=== PATIENT | female | born 1960 | race Caucasian/White ===

== ENCOUNTER 2018-07-06 14:55 | Outpatient (CLI) | payer OTHER ==
--- NOTE | 2018-07-06 17:27 | Ultrasound Report ---
Reason: LOCALIZED SWELLING, MASS AND LUMP, NECK Procedure Date: 07/06/2018 Accession Number: [id number] / [id number] Procedure: US - Head or Neck Soft Tissue CPT Code: FULL RESULT: EXAM: NECK ULTRASOUND EXAM DATE: 07/06/2018 03:25 PM. CLINICAL HISTORY: Left shoulder/neck palpable lump COMPARISON: None. TECHNIQUE: Real-time sonographic imaging was performed by the taker down including color flow. Multiple passenger relations representative static images were saved for review. FINDINGS: Targeted evaluation of the area of concern in the left shoulder/neck reveals an underlying circumscribed oval-shaped hypoechoic area with fine linear striations parallel to the skin line measuring approximately 5.4 x 2.1 x 4.0 cm. No vascularity per taker down; no saved color flow images provided. IMPRESSION: Findings most compatible with superficial lipoma. RADIA
== END 2018-07-06 14:56 | disposition home or self-care (01) ==
LOC: DI 14:55
PROVIDERS: ATTEND Physician Assistant Medical
DX: R22.1 Localized swelling, mass and lump, neck (principal)
CPT/HCPCS: 76536

== ENCOUNTER 2021-06-21 19:08 | Emergency (ER) | payer OTHER ==
[2021-06-21 19:49] LABS: BASOPHILS # (AUTO) 0.1 10^3/uL (0.0-0.1); BASOPHILS % (AUTO) 0.6 %; EOSINOPHILS # (AUTO) 0.2 10^3/uL (0.0-0.7); EOSINOPHILS % (AUTO) 2.2 %; HCT - HEMATOCRIT 43.4 % (37.0-47.0); HGB - HEMOGLOBIN 14.8 g/dL (12.0-16.0); LYMPHOCYTES # (AUTO) 2.6 10^3/uL (1.5-3.5); LYMPHOCYTES % (AUTO) 24.3 %; MEAN CORPUSCULAR HEMOGLOBIN 33.8 pg (27.0-31.0); MEAN CORPUSCULAR HGB CONC 34.1 g/dL (32.0-36.0); MEAN CORPUSCULAR VOLUME 99.1 fL (81.0-99.0); MEAN PLATELET VOLUME 8.6 fL (7.9-10.8); MONOCYTES # (AUTO) 0.8 10^3/uL (0.0-1.0); MONOCYTES % (AUTO) 7.7 %; NEUTROPHILS % (AUTO) 64.8 %; PLT - PLATELET COUNT 380 10^3/uL (130-450); RED BLOOD COUNT 4.38 10^6/uL (4.20-5.40); RED CELL DISTRIBUTION WIDTH 13.4 % (12.0-15.0); WHITE BLOOD COUNT 10.8 x10^3/uL (4.8-10.8)
--- NOTE | 2021-06-21 19:53 | XRAY Report ---
PROCEDURE: Chest 1 View X-Ray INDICATIONS: Chest Pain TECHNIQUE: One view of the chest was acquired. COMPARISON: None FINDINGS: Surgical changes and devices: None. Lungs and pleura: No pleural effusions or pneumothorax. Lungs are clear. Mediastinum: Mediastinal contours appear normal. Heart size is normal. Bones and chest wall: No suspicious bony lesions. Overlying soft tissues appear unremarkable. IMPRESSION: No evidence acute pulmonary process. Reviewed by: Devaughn Fernandes MD on 06/21/2021 7:51 PM PDT Approved by: Devaughn Fernandes MD on 06/21/2021 7:51 PM PDT Station ID: [id number]
[2021-06-21 20:03] LABS: ALBUMIN 4.3 g/dL (3.2-5.5); ALBUMIN/GLOBULIN RATIO 1.5 (1.0-2.2); BILIRUBIN,TOTAL 0.6 mg/dL (0.2-1.0); CALCIUM 9.5 mg/dL (8.5-10.3); POTASSIUM 3.6 mmol/L (3.5-5.0); TOTAL PROTEIN 7.1 g/dL (6.7-8.2)
--- NOTE | 2021-06-21 21:01 | ED Physician Documentation ---
PD HPI CHEST PAIN - Stated complaint Stated Complaint: RIGHT ARM PIT & CHEST PX - Chief complaint Chief Complaint: Cardiac - History obtained from History obtained from: Patient - Additional information Additional information: Pt comes to the ED with chief complaint of R axillary pain radiating to her R anterior chest, worsening for the past few days. Pt states she has a "bad shoulder" on the R, and that she was lowering a tailgate and thinks she strained the area. She states the pain is made worse by movement and deep breaths. She has had a cholecystectomy. No L CP. No cough, fever, or dyspnea. No N/V. Review of Systems Ten Systems: 10 systems reviewed and negative Constitutional: reports: Reviewed and negative Eyes: reports: Reviewed and negative Ears: reports: Reviewed and negative Nose: reports: Reviewed and negative Throat: reports: Reviewed and negative Cardiac: reports: Chest pain / pressure Respiratory: reports: Reviewed and negative GI: reports: Reviewed and negative : reports: Reviewed and negative Skin: reports: Reviewed and negative Musculoskeletal: reports: Reviewed and negative Neurologic: reports: Reviewed and negative Psychiatric: reports: Reviewed and negative Endocrine: reports: Reviewed and negative Immunocompromised: reports: Reviewed and negative PD PAST MEDICAL HISTORY - Past Medical History Past Medical History: Yes Cardiovascular: Hypertension, High cholesterol Respiratory: None Neuro: Migraines Endocrine/Autoimmune: HyPOthyroidism GI: None APPOINTMENT SCHEDULER: None : Incontinence Psych: Depression Musculoskeletal: Fibromyalgia, Fatigue Derm: Psoriasis - Past Surgical History Past Surgical History: Yes General: Cholecystectomy - Present Medications Home Medications: Ambulatory Orders Medication Instructions Recorded Confirmed Aspirin [Aspir 81] 81 mg PO BID 07/26/14 06/21/21 Clobetasol Propionate/Emoll 1 applic TOP DAILY PRN 07/26/14 06/21/21 [Clobetasol Emollnt 0.05% Foam] Fexofenadine [Haily] 180 mg PO QPM 07/26/14 06/21/21 Methotrexate [Methotrexate Sodium] 100 mg PO ONCE 07/26/14 06/21/21 Minocycline [Minocycline HCl] 100 mg PO BID 07/26/14 06/21/21 Telmisartan/Hydrochlorothiazid 1 tab PO QPM 07/26/14 06/21/21 [Micardis Hct 80-12.5 mg Tablet] Tolterodine [Detrol LA] 2 mg PO QPM 07/26/14 06/21/21 Topiramate 50 mg PO BID 07/26/14 06/21/21 Cyclobenzaprine [Flexeril] 10 mg PO HS 06/21/21 06/21/21 Levothyroxine Sodium [Synthroid] 112 mcg ORAL DAILY 06/21/21 06/21/21 Melatonin 5 mg PO HS 06/21/21 06/21/21 - Allergies Allergies/Adverse Reactions: Allergies Allergy/AdvReac Type Severity Reaction Status Date / Time codeine Allergy Unknown Verified 06/21/21 19:18 Mussels Allergy Unknown Uncoded 02/14/16 15:55 - Social History Does the pt smoke?: No Smoking Status: Former smoker Does the pt drink ETOH?: Yes Does the pt have substance abuse?: No - Immunizations Immunizations are current?: Yes PD ED PE NORMAL - Vitals Vital signs reviewed: Yes - General General: Alert and oriented X 3, No acute distress - HEENT HEENT: Atraumatic, PERRL, EOMI, Moist mucous membranes - Neck Neck: Supple, no meningeal sign - Cardiac Cardiac: RRR, No murmur, Strong equal pulses - Respiratory Respiratory: No respiratory distress, Clear bilaterally - Abdomen Abdomen: Soft, Non tender, Non distended - Derm Derm: Normal color, Warm and dry, No rash - Extremities Extremities: No deformity, No edema - Neuro Neuro: Alert and oriented X 3, software implementation project manager 2-12 intact, No motor deficit, No sensory deficit, Normal speech - Psych Psych: Normal mood, Normal affect PD ED PE EXPANDED - Free text exam Free text exam: Anterior and lateral R CW/rib tenderness. No axillary lymphadenopathy or breast mass. Results - Vitals Vitals: Oxygen O2 Source Room air - EKG (time done) 1924 Rate: Rate (enter#) (99) Rhythm: NSR Jadwin: Normal Intervals: Normal IA QRS: Normal Ischemia: Normal ST segments. No: T wave inversion Compare to prior EKG: Old EKG unavailable - Labs Labs: Laboratory Tests 06/21/21 06/21/21 06/21/21 19:44 19:44 19:44 WBC 10.8 RBC 4.38 Hgb 14.8 Hct 43.4 MCV 99.1 H MCH 33.8 H MCHC 34.1 RDW 13.4 Plt Count 380 MPV 8.6 Neut # (Auto) 7.0 H Lymph # (Auto) 2.6 [place] # (Auto) 0.8 Eos # (Auto) 0.2 Baso # (Auto) 0.1 Absolute Nucleated RBC 0.00 Nucleated RBC % 0.0 Sodium 139 Potassium 3.6 Chloride 101 Carbon Dioxide 29 Anion Gap 9.0 BUN 19 Creatinine 1.0 Estimated GFR (MDRD) 56 L Glucose 151 H Calcium 9.5 Total Bilirubin 0.6 AST 23 ALT 32 Alkaline Phosphatase 80 Troponin I High Sens 3.8 Total Protein 7.1 Albumin 4.3 Globulin 2.8 Albumin/Globulin Ratio 1.5 Lipase 39 - Rads (name of study) CXR Radiology: Final report received, EMP read indepedently, See rad report (neg) PD MEDICAL DECISION MAKING - ED course Complexity details: reviewed results, re-evaluated patient, considered differential, d/w patient ED course: Labs, EKG and CXR were all unremarkable. I felt the pt's sx were most consistent with a muscular strain. We have discussed symptomatic management, as well as the usual indications for return. Departure - Departure Disposition: 01 Home, Self Care Clinical Impression: Chest wall pain Chest wall muscle strain Qualifiers: Encounter type: initial encounter Qualified Code(s): S29.011A - Strain of muscle and tendon of front wall of thorax, initial encounter Condition: Stable Instructions: ED Strain Chest Wall Discharge Date/Time: 06/21/21 21:20
[2021-06-21 21:20] VITALS: BP 148/78
== END 2021-06-21 21:20 | disposition home or self-care (01) ==
LOC: ED 19:08
DX: S29.011A Strain of muscle and tendon of front wall of thorax, initial encounter (principal); X58.XXXA Exposure to other specified factors, initial encounter; I10 Essential (primary) hypertension; Z87.891 Personal history of nicotine dependence
CPT/HCPCS: 36415; 80053; 83690; 84484; 85025; 93005; 99284

== ENCOUNTER 2021-09-22 02:46 | Emergency (ER) | payer OTHER ==
[2021-09-22 03:08] LABS: BILIRUBIN,URINE NEGATIVE (NEGATIVE); GLUCOSE, URINE (UA) NEGATIVE (NEGATIVE); KETONES,URINE (UA) TRACE mg/dL (NEGATIVE); OCCULT BLOOD,URINE LARGE (NEGATIVE)
[2021-09-22 03:09] LABS: CLARITY,URINE CLEAR (CLEAR)
[2021-09-22 03:15] LABS: BACTERIA,URINE Few /HPF (None Seen); RBC,URINE TNTC /HPF (0-5); SQUAMOUS EPITHELIAL CELL,UR NONE SEEN (<= Few)
[2021-09-22 03:43] LABS: BASOPHILS % (AUTO) 0.3 %; EOSINOPHILS # (AUTO) 0.2 10^3/uL (0.0-0.7); EOSINOPHILS % (AUTO) 1.5 %; HCT - HEMATOCRIT 42.3 % (37.0-47.0); HGB - HEMOGLOBIN 14.2 g/dL (12.0-16.0); LYMPHOCYTES # (AUTO) 2.4 10^3/uL (1.5-3.5); LYMPHOCYTES % (AUTO) 17.9 %; MEAN CORPUSCULAR HEMOGLOBIN 32.6 pg (27.0-31.0); MEAN CORPUSCULAR HGB CONC 33.6 g/dL (32.0-36.0); MEAN PLATELET VOLUME 8.3 fL (7.9-10.8); MONOCYTES # (AUTO) 0.7 10^3/uL (0.0-1.0); MONOCYTES % (AUTO) 5.4 %; NEUTROPHILS # (AUTO) 9.9 10^3/uL (1.5-6.6); NEUTROPHILS % (AUTO) 74.3 %; PLT - PLATELET COUNT 375 10^3/uL (130-450); RED BLOOD COUNT 4.36 10^6/uL (4.20-5.40); RED CELL DISTRIBUTION WIDTH 13.9 % (12.0-15.0); WHITE BLOOD COUNT 13.3 x10^3/uL (4.8-10.8)
[2021-09-22 03:55] LABS: ALBUMIN 4.5 g/dL (3.2-5.5); ALBUMIN/GLOBULIN RATIO 1.7 (1.0-2.2); BILIRUBIN,TOTAL 0.5 mg/dL (0.2-1.0); CALCIUM 9.3 mg/dL (8.5-10.3); POTASSIUM 3.7 mmol/L (3.5-5.0); TOTAL PROTEIN 7.2 g/dL (6.7-8.2)
--- NOTE | 2021-09-22 04:00 | ED Physician Documentation ---
History of Present Illness - Stated complaint Stated Complaint: BLOOD IN URINE - Chief complaint Chief Complaint: Abd Pain - History obtained from History obtained from: Patient - Additonal information Additional information: 61yF with pmh htn, hld, untreated Lyme disease, psoriasis, RA, fibromyalgia, stress incontinence, p/w blood in her maxi pads since 2129 last night. patient states she often has increased urinary urgency but it got worse last night and she urinated several times, beginning to notice it was pinkish then blood tinged. she is now continuously leaking blood "as if I have my period". endorses suprapubic fullness but denies fever, abdominal pain, or back pain. Review of Systems Ten Systems: 10 systems reviewed and negative Constitutional: denies: Fever, Chills GI: denies: Abdominal Pain, Nausea, Vomiting, Diarrhea : reports: Dysuria, Frequency, Incontinent, Hematuria (hematuria vs vaginal bleeding) PD PAST MEDICAL HISTORY - Past Medical History Past Medical History: Yes Cardiovascular: Hypertension, High cholesterol Respiratory: None Neuro: Migraines Endocrine/Autoimmune: HyPOthyroidism GI: None COLORS CUSTODIAN: None : Incontinence Psych: Depression Musculoskeletal: Fibromyalgia, Fatigue Derm: Psoriasis - Past Surgical History Past Surgical History: Yes General: Cholecystectomy - Present Medications Home Medications: Ambulatory Orders Medication Instructions Recorded Confirmed Aspirin [Aspir 81] 81 mg PO BID 07/26/14 09/22/21 Clobetasol Propionate/Emoll 1 applic TOP DAILY PRN 07/26/14 09/22/21 [Clobetasol Emollnt 0.05% Foam] Fexofenadine [Haily] 180 mg PO QPM 07/26/14 09/22/21 Methotrexate [Methotrexate Sodium] 100 mg PO ONCE 07/26/14 09/22/21 Minocycline [Minocycline HCl] 100 mg PO BID 07/26/14 09/22/21 Telmisartan/Hydrochlorothiazid 1 tab PO QPM 07/26/14 09/22/21 [Micardis Hct 80-12.5 mg Tablet] Tolterodine [Detrol LA] 2 mg PO QPM 07/26/14 09/22/21 Topiramate 50 mg PO BID 07/26/14 09/22/21 Cyclobenzaprine [Flexeril] 10 mg PO HS 06/21/21 09/22/21 Levothyroxine Sodium [Synthroid] 112 mcg ORAL DAILY 06/21/21 09/22/21 Melatonin 5 mg PO HS 06/21/21 09/22/21 Nitrofurantoin [Macrobid] 100 mg PO BID #10 tab 09/22/21 - Allergies Allergies/Adverse Reactions: Allergies Allergy/AdvReac Type Severity Reaction Status Date / Time codeine Allergy Unknown Verified 09/22/21 02:56 Mussels Allergy Unknown Uncoded 09/22/21 02:56 - Social History Does the pt smoke?: No Smoking Status: Never smoker Does the pt drink ETOH?: Yes Does the pt have substance abuse?: No - Immunizations Immunizations are current?: Yes - POLST Patient has POLST: No PD ED PE NORMAL - Vitals Vital signs reviewed: Yes - General General: Alert and oriented X 3, No acute distress, Well developed/nourished - HEENT HEENT: Atraumatic, PERRL, EOMI - Neck Neck: Supple, no meningeal sign - Cardiac Cardiac: RRR - Respiratory Respiratory: No respiratory distress, Clear bilaterally - Abdomen Abdomen: Non tender, Non distended - Back Back: No CVA TTP - Derm Derm: Normal color, Warm and dry - Extremities Extremities: No deformity - Neuro Neuro: Alert and oriented X 3, No motor deficit, No sensory deficit - Psych Psych: Other (anxious affect) Results - Vitals Vitals: Vital Signs - 24 hr 09/22/21 09/22/21 02:50 05:28 Temperature 36.3 C L 36.9 C Heart Rate 97 93 Respiratory 16 16 Rate Blood Pressure 166/76 H 151/87 H O2 Saturation 99 100 Oxygen O2 Source Room air - Labs Labs: Laboratory Tests 09/22/21 09/22/21 09/22/21 03:00 03:36 03:36 WBC 13.3 H RBC 4.36 Hgb 14.2 Hct 42.3 MCV 97.0 MCH 32.6 H MCHC 33.6 RDW 13.9 Plt Count 375 MPV 8.3 Neut # (Auto) 9.9 H Lymph # (Auto) 2.4 [place] # (Auto) 0.7 Eos # (Auto) 0.2 Baso # (Auto) 0.0 Absolute Nucleated RBC 0.00 Nucleated RBC % 0.0 Sodium 134 L Potassium 3.7 Chloride 97 L Carbon Dioxide 25 Anion Gap 12.0 BUN 23 H Creatinine 1.0 Estimated GFR (MDRD) 56 L Glucose 162 H Calcium 9.3 Total Bilirubin 0.5 AST 33 ALT 43 Alkaline Phosphatase 71 Total Protein 7.2 Albumin 4.5 Globulin 2.7 Albumin/Globulin Ratio 1.7 Lipase 68 H Urine Color RED/BLOODY Urine Clarity CLEAR Urine pH 5.0 Ur Specific Clark 1.010 Urine Protein Urine Glucose (UA) NEGATIVE Urine Ketones TRACE Urine Occult Blood LARGE H Urine Nitrite Urine Bilirubin NEGATIVE Urine Urobilinogen Ur Leukocyte Esterase Urine RBC TNTC H Urine WBC 11-25 H Ur Squamous Epith Cells NONE SEEN Urine Bacteria Few Ur Microscopic Review INDICATED Urine Culture Comments INDICATED PD MEDICAL DECISION MAKING - ED course ED course: 61yF p/w increased frequency and hematuria concerning for uti. patient states she gets claustrophobia with ct and is uncomfortable with this, therefore we will obtain u/s to evaluate for uterine pathology rather than ct. higher suspicion that the continuous vaginal bleeding she is experiencing is from urinary bladder 2/2 urinary incontinence therefore if u/s shows no pathology we will treat for uti. initial wet read of ultrasound - no hydro bilaterally. no clear uterine pathology aside from possible polyp. will have patient f/u with uro-cryptologic support specialist outpatient Departure - Departure Disposition: 01 Home, Self Care Clinical Impression: UTI (urinary tract infection), Hematuria, Uterine mass Condition: Good Instructions: ED UTI Cystitis Female Follow-Up: Mya Madera MD [Provider Admit Priv/Credential] - Prescriptions: Nitrofurantoin [Macrobid] 100 mg PO BID #10 tab Comments: You were seen in the emergency department for blood in your urine versus vaginal bleeding. Your urine test showed signs of infection. Your ultrasound showed no kidney issues but did show a possible mass on your uterus. Please take your antibiotics as prescribed. I recommend avoiding activated charcoal intake when taking antibiotics since it can prevent absorption. Please follow up with web mobile designer or uro-gynecology in regards to the mass on your uterus and return to the emergency department if you have new or worsening symptoms or other concerns. Valerie Bowman, [facility], Urology Accepting New Patients [facility] - [address] [address]
[2021-09-22 06:29] VITALS: BP 137/77
--- NOTE | 2021-09-22 12:08 | Ultrasound Report ---
PROCEDURE: Pelvic w/Transvaginal INDICATIONS: vaginal bleeding X 1 day TECHNIQUE: Real-time scanning was performed of the pelvic organs, with image documentation. Additional endovagi nal scanning was necessary due to incomplete visualization of the adnexal and endometrial structures by transabdominal scanning. COMPARISON: None. FINDINGS: No pathologic free abdominal or pelvic fluid. Uterus: Uterus is normal in size at 5.6 x 4.2 x 3.0 cm. The endometrium measures 4.9 mm in combined thickness. Small echogenic foci are noted within the region of the cervix. Echogenic fluid is noted within the e ndometrium. Ovaries: Right ovaries not visualized. Adnexal region is unremarkable. Left ovary is not visualized. Adnexal region is unremarkable. IMPRESSION: 1. Echogenic fluid within the endometrium possibly related to small volume of blood. The above findings are concordant with preliminary report. Reviewed by: Deanna Temple MD on 09/22/2021 12:06 PM PST Approved by: Denana Temple MD on 09/22/2021 12:06 PM PST Station ID: [id number]
--- NOTE | 2021-09-25 08:41 | Ultrasound Report ---
PROCEDURE: Retroperitoneal INDICATIONS: HEMATURIA TECHNIQUE: Real-time scanning was performed of the retroperitoneal organs, with image documentation. COMPARISON: None. FINDINGS: Kidneys: Kidneys are normal in size. Right kidney measures 10.4 cm long; left kidney measures 11.0 cm long. Right renal cortical thickness is 1.3 cm; left renal cortical thickness is 1.2 cm. No sujatha d masses, hydronephrosis, or nephrolithiasis. Bladder: Prevoid volume 20 6 cc, post void residual 206 cc. Ureteral jets are identified bilaterally. The lateral wall appears thickened and is incompletely distended. IMPRESSION: Mild appearance of bladder wall thickening is suspected be related to incomplete distention. However, if clinical concern persists, correlation with urinalysis is recommended, as cystitis can have a sim ilar imaging appearance. Reviewed by: Deanna Temple MD on 09/22/2021 12:08 PM [facility] Approved by: Deanna Temple MD on 09/22/2021 12:08 PM [facility] Station ID: [id number]
== END 2021-09-22 06:29 | disposition home or self-care (01) ==
LOC: ED 02:46
DX: N85.8 Other specified noninflammatory disorders of uterus (principal); N39.0 Urinary tract infection, site not specified; R31.0 Gross hematuria; I10 Essential (primary) hypertension
CPT/HCPCS: 36415; 80053; 81001; 81003; 83690; 85025; 87086; 99284

== ENCOUNTER 2023-03-18 01:22 | Emergency (ER) | payer OTHER ==
[2023-03-18 02:47] LABS: BILIRUBIN,URINE NEGATIVE (NEGATIVE); GLUCOSE, URINE (UA) NEGATIVE (NEGATIVE); KETONES,URINE (UA) NEGATIVE (NEGATIVE); LEUKOCYTE ESTERASE, URINE MODERATE (NEGATIVE); NITRITE,URINE NEGATIVE (NEGATIVE); OCCULT BLOOD,URINE LARGE (NEGATIVE); PROTEIN,URINE TRACE mg/dL (NEGATIVE); UROBILINOGEN,URINE 0.2 (NORMAL) E.U./dL (NORMAL)
[2023-03-18 02:49] LABS: CLARITY,URINE CLEAR (CLEAR)
[2023-03-18 02:55] LABS: BACTERIA,URINE Few /HPF (None Seen); RBC,URINE 0-5 /HPF (0-5); SQUAMOUS EPITHELIAL CELL,UR RARE Squamous (<= Few)
[2023-03-18] MEDS ORDERED: SULFAMETH/TRIMETH DS 800/160 MG TABLET PO STA (03:14)
[2023-03-18] MEDS ORDERED: PHENAZOPYRIDINE 100 MG TABLET PO STA (03:14)
--- NOTE | 2023-03-18 03:17 | ED Physician Documentation ---
History of Present Illness - Stated complaint Stated Complaint: D/FEMALE /SORE THROAT - Chief complaint Chief Complaint: General - History obtained from History obtained from: Patient - Additonal information Additional information: The patient comes to the emergency department chief complaint of pain with urination and passing of blood and clots with urination. She states that this started about 5 days ago after she had a large episode of diarrhea. She states that she has had diarrhea on and off ever since but began to have dysuria and hematuria as well. She is also developed a little bit of a sore throat. She denies any fevers or chills. No nausea or vomiting. No other complaints at this time. PD PAST MEDICAL HISTORY - Past Medical History Cardiovascular: Hypertension, High cholesterol Respiratory: None Neuro: Migraines Endocrine/Autoimmune: HyPOthyroidism GI: None HEEL GOUGER: None : Incontinence Psych: Depression Musculoskeletal: Fibromyalgia, Fatigue Derm: Psoriasis - Past Surgical History Past Surgical History: Yes General: Cholecystectomy - Present Medications Home Medications: Ambulatory Orders Medication Instructions Recorded Confirmed Aspirin [Aspir 81] 81 mg PO BID 07/26/14 09/22/21 Clobetasol Propionate/Emoll 1 applic TOP DAILY PRN 07/26/14 09/22/21 [Clobetasol Emollnt 0.05% Foam] Fexofenadine [Haily] 180 mg PO QPM 07/26/14 09/22/21 Methotrexate [Methotrexate Sodium] 100 mg PO ONCE 07/26/14 09/22/21 Minocycline [Minocycline HCl] 100 mg PO BID 07/26/14 09/22/21 Telmisartan/Hydrochlorothiazid 1 tab PO QPM 07/26/14 09/22/21 [Micardis Hct 80-12.5 mg Tablet] Tolterodine [Detrol LA] 2 mg PO QPM 07/26/14 09/22/21 Topiramate 50 mg PO BID 07/26/14 09/22/21 Cyclobenzaprine [Flexeril] 10 mg PO HS 06/21/21 09/22/21 Levothyroxine Sodium [Synthroid] 112 mcg ORAL DAILY 06/21/21 09/22/21 Melatonin 5 mg PO HS 06/21/21 09/22/21 Nitrofurantoin [Macrobid] 100 mg PO BID #10 tab 09/22/21 Sulfamethox/Trimeth 800/160 1 each PO BID #14 tablet 03/18/23 [Bactrim Ds 800/160] - Allergies Allergies/Adverse Reactions: Allergies Allergy/AdvReac Type Severity Reaction Status Date / Time codeine Allergy Unknown Verified 09/22/21 02:56 Mussels Allergy Unknown Uncoded 09/22/21 02:56 - Social History Does the pt smoke?: No Smoking Status: Never smoker Does the pt drink ETOH?: Yes Does the pt have substance abuse?: No - Immunizations Immunizations are current?: Yes - POLST Patient has POLST: No PD ED PE NORMAL - Vitals Vital signs reviewed: Yes - General General: Alert and oriented X 3, No acute distress, Well developed/nourished - HEENT HEENT: Atraumatic, PERRL, EOMI, Moist mucous membranes, Other (Mild pharyngeal erythema without exudates. The patient's tonsils are extremely small and nearly undetectable.) - Cardiac Cardiac: RRR, No murmur - Respiratory Respiratory: No respiratory distress, Clear bilaterally - Abdomen Abdomen: Soft, Non tender, Non distended - Derm Derm: Normal color, Warm and dry, No rash - Extremities Extremities: No deformity - Neuro Neuro: Alert and oriented X 3 - Psych Psych: Normal mood, Normal affect Results - Vitals Vitals: Vital Signs - 24 hr 03/18/23 03/18/23 01:31 03:18 Temperature 35.7 C L Heart Rate 106 H 73 Respiratory 19 17 Rate Blood Pressure 148/62 H 112/64 O2 Saturation 100 100 Oxygen O2 Source Room air - Labs Labs: Laboratory Tests 03/18/23 02:40 Urine Color YELLOW Urine Clarity CLEAR Urine pH 7.0 Ur Specific [place] <=1.005 Urine Protein TRACE Urine Glucose (UA) NEGATIVE Urine Ketones NEGATIVE Urine Occult Blood LARGE H Urine Nitrite NEGATIVE Urine Bilirubin NEGATIVE Urine Urobilinogen 0.2 (NORMAL) Ur Leukocyte Esterase MODERATE H Urine RBC 0-5 Urine WBC 6-10 H Ur Squamous Epith Cells RARE Squamous Urine Bacteria Few Ur Microscopic Review INDICATED Urine Culture Comments INDICATED PD Medical Decision Making - ED course Complexity details: reviewed results, re-evaluated patient, considered differential, d/w patient ED course: The patient's urinalysis was positive for infection and she was started on Bactrim in the emergency department. We have discussed symptomatic management at home with Pyridium, as well as the usual indications for return. Departure - Departure Disposition: 01 Home, Self Care Clinical Impression: UTI (urinary tract infection) Qualifiers: Urinary tract infection type: site unspecified Hematuria presence: with hematuria Qualified Code(s): N39.0 - Urinary tract infection, site not specified Condition: Stable Instructions: ED UTI Cystitis Female Prescriptions: Sulfamethox/Trimeth 800/160 [Bactrim Ds 800/160] 1 each PO BID #14 tablet Comments: Your urine is positive for infection. You have been started on antibiotics here in the emergency department and a prescription for the same has been sent to the [facility] in [place], your pharmacy of choice on record. Please pick these medications up and take your next dose then. Please be sure to drink plenty of fluids, especially water. As far as your sore throat and diarrhea, it is possible that you also have picked up one of the many viruses that are going around right now. Urinary tract infection can also cause diarrhea as this may be part of the reason your diarrhea has continued. Symptoms are expected to blow over on their own given a week or two.
[2023-03-18 03:19] VITALS: BP 112/64
== END 2023-03-18 03:32 | disposition home or self-care (01) ==
LOC: ED 01:22
DX: N39.0 Urinary tract infection, site not specified (principal); R31.9 Hematuria, unspecified; I10 Essential (primary) hypertension; E78.00 Pure hypercholesterolemia, unspecified; E03.9 Hypothyroidism, unspecified; Z79.82 Long term (current) use of aspirin; Z79.899 Other long term (current) drug therapy
CPT/HCPCS: 81001; 87086; 99283; A9270; 81003

== ENCOUNTER 2023-07-26 17:06 | Emergency (ER) | payer MEDICARE, OTHER ==
[2023-07-26] MEDS ORDERED: IPRATROPIUM/ALBUTEROL 3 ML NEB INH STA (17:27)
[2023-07-26] MEDS ORDERED: diphenhydrAMINE INJ 50 MG/ML VIAL IVP STA (17:28)
[2023-07-26] MEDS ORDERED: PROCHLORPERAZINE 10 MG/2 ML VIAL IVP STA (17:28)
[2023-07-26] MEDS ORDERED: KETOROLAC 30 MG/ML VIAL IVP STA (17:28)
[2023-07-26] MEDS ORDERED: SODIUM CHLORIDE 0.9% 1,000 ML IV STA (17:31)
--- NOTE | 2023-07-26 17:31 | ED Physician Documentation ---
History of Present Illness - Stated complaint Stated Complaint: COUGH/MIGRAINE - Chief complaint Chief Complaint: General - Additonal information Additional information: 62-year-old female presents to the emergency department for evaluation of 1 week fatigue malaise, headache, cough, shortness of air and now diarrhea that began today. She has a history of hypertension, migraines as well as remote history of Lyme disease. She denies any fevers. Has tested negative for COVID. Denies urinary symptoms. Denies chest pain. She has attempted to take her usual migraine cocktails without relief of symptoms. No falls or trauma. Not anticoagulated. Review of Systems Constitutional: reports: Myalgias, Fatigue. 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 : Incontinence Psych: Depression Musculoskeletal: Fibromyalgia, Fatigue Derm: Psoriasis - Past Surgical History Past Surgical History: Yes General: Cholecystectomy - Present Medications Home Medications: Ambulatory Orders Medication Instructions Recorded Confirmed Aspirin [Aspir 81] 81 mg PO BID 07/26/14 09/22/21 Clobetasol Propionate/Emoll 1 applic TOP DAILY PRN 07/26/14 09/22/21 [Clobetasol Emollnt 0.05% Foam] Fexofenadine [Haily] 180 mg PO QPM 07/26/14 09/22/21 Methotrexate [Methotrexate Sodium] 100 mg PO ONCE 07/26/14 09/22/21 Minocycline [Minocycline HCl] 100 mg PO BID 07/26/14 09/22/21 Telmisartan/Hydrochlorothiazid 1 tab PO QPM 07/26/14 09/22/21 [Micardis Hct 80-12.5 mg Tablet] Tolterodine [Detrol LA] 2 mg PO QPM 07/26/14 09/22/21 Topiramate 50 mg PO BID 07/26/14 09/22/21 Cyclobenzaprine [Flexeril] 10 mg PO HS 06/21/21 09/22/21 Levothyroxine Sodium [Synthroid] 112 mcg ORAL DAILY 06/21/21 09/22/21 Melatonin 5 mg PO HS 06/21/21 09/22/21 Nitrofurantoin [Macrobid] 100 mg PO BID #10 tab 09/22/21 Sulfamethox/Trimeth 800/160 1 each PO BID #14 tablet 03/18/23 [Bactrim Ds 800/160] - Allergies Allergies/Adverse Reactions: Allergies Allergy/AdvReac Type Severity Reaction Status Date / Time codeine Allergy Unknown Verified 07/26/23 17:12 mussels Allergy Unknown Verified 07/26/23 17:31 - Social History Does the pt smoke?: No Smoking Status: Never smoker Does the pt drink ETOH?: Yes Does the pt have substance abuse?: No - Immunizations Immunizations are current?: Yes - POLST Patient has POLST: No PD ED PE EXPANDED - General General: Alert, No acute distress, Other (obese) - Cardiac Cardiac: Regular Rate, Radial strong equal, Cap refill < 2 sec. No: Murmur Present - Respiratory Respiratory: Other (generally coarse breath sounds, no crackles). No: Distress, Labored - Abdomen Abdomen: Hyperactive BS. No: Tender to palpation - Derm Derm: Normal color, Warm and dry. No: Rash - Neuro Neuro: Alert and Oriented X 3, CNII-XII intact - GCS Eye Opening: Spontaneous Motor: Obeys Commands Verbal: Oriented Total: 15 Results - Vitals Vitals: Vital Signs - 24 hr 07/26/23 07/26/23 17:12 17:45 Temperature 36.5 C Heart Rate 90 90 Respiratory 16 16 Rate Blood Pressure 150/77 H O2 Saturation 96 Oxygen O2 Source Room air - Labs Labs: Laboratory Tests 07/26/23 07/26/23 07/26/23 17:37 17:40 17:40 WBC 10.8 RBC 4.19 L Hgb 13.5 Hct 40.5 MCV 96.7 MCH 32.2 H MCHC 33.3 RDW 13.9 Plt Count 398 MPV 8.3 Neut # (Auto) 7.6 H Lymph # (Auto) 1.3 L [place] # (Auto) 1.1 H Eos # (Auto) 0.7 Baso # (Auto) 0.1 Absolute Nucleated RBC 0.00 Nucleated RBC % 0.0 Sodium 132 L Potassium 3.4 L Chloride 94 L Carbon Dioxide 28 Anion Gap 10.0 BUN 17 Creatinine 1.1 Estimated GFR (MDRD) 50 L Glucose 113 H Calcium 11.0 H Total Bilirubin 0.4 AST 24 ALT 22 Alkaline Phosphatase 98 B-Natriuretic Peptide Total Protein 7.4 Albumin 4.1 Globulin 3.3 Albumin/Globulin Ratio 1.2 Lipase 30 TSH Free T4 Direct Nasal Adenovirus (PCR) NOT DETECTED Nasal B. parapertussis DNA (PCR) NOT DETECTED Nasal Coronavir 229E PCR NOT DETECTED Nasal Coronavir HKU1 PCR NOT DETECTED Nasal Coronavir NL63 PCR NOT DETECTED Nasal Coronavir OC43 PCR NOT DETECTED Nasal Enterovir/Rhinovir PCR NOT DETECTED Nasal Influenza B PCR NOT DETECTED Nasal Influenza A PCR NOT DETECTED Nasal Parainfluen 1 PCR NOT DETECTED Nasal Parainfluen 2 PCR NOT DETECTED Nasal Parainfluen 3 PCR NOT DETECTED Nasal Parainfluen 4 PCR NOT DETECTED Nasal RSV (PCR) NOT DETECTED Nasal B.pertussis DNA PCR NOT DETECTED Nasal C.pneumoniae (PCR) NOT DETECTED Andrea Human Metapneumo PCR NOT DETECTED Nasal M.pneumoniae (PCR) NOT DETECTED Nasal SARS-CoV-2 (PCR) NOT DETECTED 07/26/23 07/26/23 17:40 17:40 WBC RBC Hgb Hct MCV MCH MCHC RDW Plt Count MPV Neut # (Auto) Lymph # (Auto) [place] # (Auto) Eos # (Auto) Baso # (Auto) Absolute Nucleated RBC Nucleated RBC % Sodium Potassium Chloride Carbon Dioxide Anion Gap BUN Creatinine Estimated GFR (MDRD) Glucose Calcium Total Bilirubin AST ALT Alkaline Phosphatase B-Natriuretic Peptide 64 Total Protein Albumin Globulin Albumin/Globulin Ratio Lipase TSH 7.56 H Free T4 Direct 0.99 Nasal Adenovirus (PCR) Nasal B. parapertussis DNA (PCR) Nasal Coronavir 229E PCR Nasal Coronavir HKU1 PCR Nasal Coronavir NL63 PCR Nasal Coronavir OC43 PCR Nasal Enterovir/Rhinovir PCR Nasal Influenza B PCR Nasal Influenza A PCR Nasal Parainfluen 1 PCR Nasal Parainfluen 2 PCR Nasal Parainfluen 3 PCR Nasal Parainfluen 4 PCR Nasal RSV (PCR) Nasal B.pertussis DNA PCR Nasal C.pneumoniae (PCR) Andrea Human Metapneumo PCR Nasal M.pneumoniae (PCR) Nasal SARS-CoV-2 (PCR) - Rads (name of study) cxr Relevant Findings:: Final report received (no acute cardiopulmonary process) PD Medical Decision Making - ED course Complexity details: reviewed results, re-evaluated patient, d/w patient ED course: 62-year-old female presents emergency department for evaluation of malaise fatigue headaches and cough. This morning she began having diarrhea. Cardiopulmonary auscultation was rather unremarkable. No hypoxia. Chest x-ray is interpreted by the radiologist was negative for acute findings jesting pneumonia pneumothorax or pleural effusion. Respiratory viral panel was also negative. I did obtain CBC and electrolytes. The most acute finding of abnormality was that of a calcium of 11. Her albumin level was normal. She does take calcium supplements as well as being on hydrochlorothiazide. I advised her to discontinue the calcium supplements and follow closely with her PCP. If the calcium remains elevated despite stopping the supplements they may need to consider medication adjustment or PTH monitoring. Clinically she appears rather well though she has vague constitutional symptoms. In the emergency department she was given Compazine Benadryl and Toradol which fully resolved her headache. Despite a negative viral panel I still suspect she has a viral illness. We discussed routine conservative care measures as well as the usual emergent return precautions. Departure - Departure Disposition: Home, Self Care Clinical Impression: Hypercalcemia Fatigue Qualifiers: Fatigue type: unspecified Qualified Code(s): R53.83 - Other fatigue Cough Qualifiers: Cough type: acute Qualified Code(s): R05.1 - Acute cough Headache Qualifiers: Headache type: unspecified Headache chronicity pattern: acute headache Intractability: not intractable Qualified Code(s): R51.9 - Headache, unspecified Condition: Stable Record reviewed to determine appropriate education?: Yes Comments: You are seen today in the emergency department for headache, fatigue, diarrhea and a cough. As discussed at the bedside your chest x-ray was normal. Your labs were all e ssentially normal though your calcium level was a little elevated today at 11. I recommend that you stop your calcium supplements and discuss this with your primary care doctor. Sometimes elevated calcium levels can be seen in those who take hydrochlorothiazide. If stopping the calcium supplements does not normalize her calcium they may want to consider adjusting your medications. Your viral panel today was negative however the constellation of your symptoms speaks mostly to an acute viral illness. At home I recommend that you stay well-hydrated drink plenty of fluids. You can continue to take your usual medications. Return immediately to the ER if you find you are having worsening symptoms, difficulty breathing, chest pain or any other worsening symptoms. Forms: PCP List
--- NOTE | 2023-07-26 17:44 | XRAY Report ---
PROCEDURE: Chest 1 View X-Ray INDICATIONS: Chest Pain TECHNIQUE: One view of the chest was acquired. COMPARISON: 06/21/2021. FINDINGS: Surgical changes and devices: None. Lungs and pleura: No pleural effusions or pneumothorax. Lungs are clear. Mediastinum: Mediastinal contours appear normal. Heart size is normal. Bones and chest wall: No suspicious bony lesions. Overlying soft tissues appear unremarkable. IMPRESSION: No acute cardiopulmonary process. Reviewed by: Dinesh Tim MD on 07/26/2023 5:43 PM PDT Approved by: Dinesh Tim MD on 07/26/2023 5:43 PM PDT Station ID: [id number]
[2023-07-26 17:52] LABS: BASOPHILS # (AUTO) 0.1 10^3/uL (0.0-0.1); BASOPHILS % (AUTO) 0.8 %; EOSINOPHILS # (AUTO) 0.7 10^3/uL (0.0-0.7); EOSINOPHILS % (AUTO) 6.5 %; HCT - HEMATOCRIT 40.5 % (37.0-47.0); HGB - HEMOGLOBIN 13.5 g/dL (12.0-16.0); LYMPHOCYTES # (AUTO) 1.3 10^3/uL (1.5-3.5); LYMPHOCYTES % (AUTO) 11.8 %; MEAN CORPUSCULAR HEMOGLOBIN 32.2 pg (27.0-31.0); MEAN CORPUSCULAR HGB CONC 33.3 g/dL (32.0-36.0); MEAN CORPUSCULAR VOLUME 96.7 fL (81.0-99.0); MEAN PLATELET VOLUME 8.3 fL (7.9-10.8); MONOCYTES # (AUTO) 1.1 10^3/uL (0.0-1.0); NEUTROPHILS # (AUTO) 7.6 10^3/uL (1.5-6.6); NEUTROPHILS % (AUTO) 70.3 %; PLT - PLATELET COUNT 398 10^3/uL (130-450); RED BLOOD COUNT 4.19 10^6/uL (4.20-5.40); RED CELL DISTRIBUTION WIDTH 13.9 % (12.0-15.0); WHITE BLOOD COUNT 10.8 x10^3/uL (4.8-10.8)
[2023-07-26 18:11] LABS: ALBUMIN 4.1 g/dL (3.2-5.5); ALBUMIN/GLOBULIN RATIO 1.2 (1.0-2.2); BILIRUBIN,TOTAL 0.4 mg/dL (0.2-1.0); CREATININE 1.1 mg/dL (0.6-1.3); POTASSIUM 3.4 mmol/L (3.5-4.5); TOTAL PROTEIN 7.4 g/dL (6.4-8.9)
[2023-07-26 18:22] LABS: THYROID STIMULATING HORMONE 7.56 uIU/mL (0.34-5.60)
[2023-07-26 19:04] LABS: B. PARAPERTUSSIS- RESP PCR PAN NOT DETECTED; B. PERTUSSIS- RESP PCR PANEL NOT DETECTED; C. PNEUMONIAE- RESP PCR PANEL NOT DETECTED; CORONAVIRUS 229E-RESP PCR NOT DETECTED; CORONAVIRUS HKU1-RESP PCR NOT DETECTED; CORONAVIRUS NL63-RESP PCR NOT DETECTED; CORONAVIRUS OC43-RESP PCR NOT DETECTED; HUMAN METAPNEUMOVIRUS NOT DETECTED; INFLUENZA A- RESP PCR PANEL NOT DETECTED; INFLUENZA B - RESP PCR PANEL NOT DETECTED; M. PNEUMONIAE- RESP PCR PANEL NOT DETECTED; PARAINFLUENZA VIRUS 1 NOT DETECTED; PARAINFLUENZA VIRUS 2 NOT DETECTED; PARAINFLUENZA VIRUS 3 NOT DETECTED; PARAINFLUENZA VIRUS 4 NOT DETECTED; RHINOVIRUS/ENTEROVIRUS NOT DETECTED; RSV- RESP PCR PANEL NOT DETECTED; SARS-CoV-2 -RESP PCR PANEL NOT DETECTED
[2023-07-26] MEDS ORDERED: POTASSIUM BICARB 25 MEQ TABLET PO STA (19:15)
[2023-07-26 19:45] VITALS: BP 160/95; O2SAT 100
== END 2023-07-26 19:38 | disposition home or self-care (01) ==
LOC: ED 17:06
DX: R53.83 Other fatigue (principal); R05.1 Acute cough; R51.9 Headache, unspecified; E83.52 Hypercalcemia; Z20.822 Contact with and (suspected) exposure to COVID-19
CPT/HCPCS: 36415; 71045; 80053; 83690; 83880; 84439; 84443; 85025; 87633; 94640; 96374; 99283; 99284; A9270; J1200

== ENCOUNTER 2023-08-07 17:25 | Inpatient (IN) | payer MEDICARE, OTHER ==
[2023-08-07] MEDS ORDERED: SODIUM CHLORIDE 0.9% 1,000 ML IV STA ×2 (17:55→19:16)
--- NOTE | 2023-08-07 17:57 | ED Physician Documentation ---
PD HPI HEADACHE - Stated complaint Stated Complaint: GLF/DIZZY/FATIGUE/VOMITING/GI - Chief complaint Chief Complaint: Trauma Hd/Nk - History obtained from History obtained from: Patient - Additional information Additional information: 63-year-old woman with psoriasis on weekly methotrexate, no recent dose changes, type 2 diabetes diagnosis but well controlled with diet, hypertension. She has a history of migraines and lately her migraines have been worse having to take rizatriptan which she had not previously been taking. She developed some weakness and today her legs gave out on her and she hit the back of her head on the bathroom floor. There was no loss of consciousness. She had a severe headache, now mild. 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 Specifically: Her white count was 16.6 thousand, month prior it was 8000. Her platelets were 543, a month prior they were 375. Her liver function was normal. BUN was 29, a month ago was 12. Her creatinine was 2.23, a month ago was 0.9 GFR was 24, a month ago was 71. She has no history of kidney disease. 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 : Incontinence Psych: Depression Musculoskeletal: Fibromyalgia, Fatigue Derm: Psoriasis - Past Surgical History Past Surgical History: Yes General: Cholecystectomy - Present Medications Home Medications: Ambulatory Orders Medication Instructions Recorded Confirmed Aspirin [Aspir 81] 81 mg PO BID 07/26/14 09/22/21 Clobetasol Propionate/Emoll 1 applic TOP DAILY PRN 07/26/14 09/22/21 [Clobetasol Emollnt 0.05% Foam] Fexofenadine [Haily] 180 mg PO QPM 07/26/14 09/22/21 Methotrexate [Methotrexate Sodium] 100 mg PO ONCE 07/26/14 09/22/21 Minocycline [Minocycline HCl] 100 mg PO BID 07/26/14 09/22/21 Telmisartan/Hydrochlorothiazid 1 tab PO QPM 07/26/14 09/22/21 [Micardis Hct 80-12.5 mg Tablet] Tolterodine [Detrol LA] 2 mg PO QPM 07/26/14 09/22/21 Topiramate 50 mg PO BID 07/26/14 09/22/21 Cyclobenzaprine [Flexeril] 10 mg PO HS 06/21/21 09/22/21 Levothyroxine Sodium [Synthroid] 112 mcg ORAL DAILY 06/21/21 09/22/21 Melatonin 5 mg PO HS 06/21/21 09/22/21 Nitrofurantoin [Macrobid] 100 mg PO BID #10 tab 09/22/21 Sulfamethox/Trimeth 800/160 1 each PO BID #14 tablet 03/18/23 [Bactrim Ds 800/160] - Allergies Allergies/Adverse Reactions: Allergies Allergy/AdvReac Type Severity Reaction Status Date / Time codeine Allergy Unknown Verified 07/26/23 17:12 mussels Allergy Unknown Verified 07/26/23 17:31 - Social History Does the pt smoke?: No Smoking Status: Never smoker Does the pt drink ETOH?: Yes Does the pt have substance abuse?: No - Immunizations Immunizations are current?: Yes - POLST Patient has POLST: No PD ED PE NORMAL - Vitals Vital signs reviewed: Yes - General General: Alert and oriented X 3, No acute distress - Neck Neck: Supple, no meningeal sign - Cardiac Cardiac: RRR, No murmur - Respiratory Respiratory: No respiratory distress, Clear bilaterally - Abdomen Abdomen: Non tender - Back Back: No CVA TTP, No spinal TTP - Derm Derm: Normal color, Warm and dry - Extremities Extremities: No edema, No calf tenderness / cord - Neuro Neuro: Alert and oriented X 3, Normal speech Results - Vitals Vitals: Vital Signs - 24 hr 08/07/23 17:31 Temperature 36.3 C L Heart Rate 69 Respiratory 18 Rate Blood Pressure 150/76 H O2 Saturation 98 Oxygen O2 Source Room air - EKG (time done) 1826 EKG releavant findings:: EKG personally interpreted by author of this note. Relevant findings are: Rate: Rate (enter#) (65) Rhythm: NSR [place]: Normal Intervals: Normal [place], Prolonged QT QRS: Normal Ischemia: Normal ST segments - Labs Labs: Laboratory Tests 08/07/23 08/07/23 08/07/23 18:14 18:44 18:44 WBC 15.4 H RBC 4.47 Hgb 14.5 Hct 41.5 MCV 92.8 MCH 32.4 H MCHC 34.9 RDW 13.3 Plt Count 508 H MPV 8.6 Neut # (Auto) Not Reportable Lymph # (Auto) Not Reportable [place] # (Auto) Not Reportable Eos # (Auto) Not Reportable Baso # (Auto) Not Reportable Absolute Nucleated RBC Not Reportable Total Counted 100 Band Neuts % (Manual) 0 Abnorm Lymph % (Manual) 0 Nucleated RBC % Not Reportable Neutrophils # (Manual) 10.3 H Lymphocytes # (Manual) 2.8 Monocytes # (Manual) 2.3 H Eosinophils # (Manual) 0.0 Basophils # (Manual) 0.0 Differential Comment MANUAL DIFFERENTIAL Platelet Estimate INCREASED (>450,000) Platelet Morphology NORMAL APPEARANCE RBC Morph Micro Appear NORMAL APPEARANCE Sodium 126 L Potassium 3.2 L Chloride 89 L Carbon Dioxide 29 Anion Gap 8.0 BUN 40 H Creatinine 2.6 H Estimated GFR (MDRD) 18 L Glucose 115 H Calcium 16.2 H* Total Bilirubin 0.5 AST 25 ALT 25 Alkaline Phosphatase 79 Total Protein 7.1 Albumin 3.9 Globulin 3.2 Albumin/Globulin Ratio 1.2 Total Intact PTH 6 L - Rads (name of study) CT Head Relevant Findings:: Final report received, EMP independent interpretation of test PD Medical Decision Making - ED course ED course: 63-year-old woman with nonspecific syndrome of fatigue, vomiting, GI upset and weakness today coming in a fall and hitting her head. CT of the head was without signs of trauma or other abnormality. Labs were notable for worsening renal function on CMP with modest hyponatremia and hypokalemia and profound hype rcalcemia. CBC showing improved white count from yesterday. She was hydrated with 1 L of normal saline and 300 mL/h for her hypercalcemia. Renal function would not currently tolerate zoledronic acid. PTH added on and low so this is suggestive of either elevated vitamin D or malignancy related hypercalcemia. Vitamin D levels and PTH RP were added on but will not be completed tonight. Retroperitoneal ultrasound also ordered but given the above I expect her kidneys to be probably structurally normal. Spoke with Dr. Chapa, [facility] hospitalist for admission at 8:35 PM. Departure - Departure Disposition: 64 [facility] DC/Xfer Clinical Impression: FANY (acute kidney injury), Hypercalcemia, Hypokalemia, Hyponatremia Head injury Qualifiers: Encounter type: initial encounter Qualified Code(s): S09.90XA - Unspecified injury of head, initial encounter Condition: Serious Forms: PCP List
[2023-08-07 18:32] LABS: BASOPHILS % (AUTO) 0.4 %; EOSINOPHILS % (AUTO) 0.4 %; HCT - HEMATOCRIT 41.5 % (37.0-47.0); HGB - HEMOGLOBIN 14.5 g/dL (12.0-16.0); LYMPHOCYTES % (AUTO) 13.6 %; MEAN CORPUSCULAR HEMOGLOBIN 32.4 pg (27.0-31.0); MEAN CORPUSCULAR HGB CONC 34.9 g/dL (32.0-36.0); MEAN CORPUSCULAR VOLUME 92.8 fL (81.0-99.0); MEAN PLATELET VOLUME 8.6 fL (7.9-10.8); MONOCYTES % (AUTO) 10.3 %; NEUTROPHILS % (AUTO) 74.7 %; PLT - PLATELET COUNT 508 10^3/uL (130-450); RED BLOOD COUNT 4.47 10^6/uL (4.20-5.40); RED CELL DISTRIBUTION WIDTH 13.3 % (12.0-15.0); WHITE BLOOD COUNT 15.4 x10^3/uL (4.8-10.8)
[2023-08-07 18:34] LABS: ABNORMAL LYMPHS % (MANUAL) 0 %; BAND NEUTROPHILS % (MANUAL) 0 %
[2023-08-07 19:02] LABS: LYMPHOCYTES # (MANUAL) 2.8 10^3/uL (1.5-3.5); LYMPHOCYTES % (MANUAL) 18 %; MONOCYTES # (MANUAL) 2.3 10^3/uL (0.0-1.0); NEUTROPHILS # (MANUAL) 10.3 10^3/uL (1.5-6.6); PLATELET ESTIMATE, MANUAL INCREASED (>450,000) (NORMAL); PLATELET MORPHOLOGY NORMAL APPEARANCE (NORMAL); RBC MORPHOLOGY (MULTIPLE) NORMAL APPEARANCE (NORMAL)
[2023-08-07 19:03] LABS: DIFFERENTIAL COMMENT MANUAL DIFFERENTIAL
[2023-08-07 19:03] LABS: ALBUMIN 3.9 g/dL (3.2-5.5)
[2023-08-07 19:08] LABS: CALCIUM 16.2 mg/dL (8.5-10.3)
[2023-08-07 19:11] LABS: ALBUMIN/GLOBULIN RATIO 1.2 (1.0-2.2); BILIRUBIN,TOTAL 0.5 mg/dL (0.2-1.0); CREATININE 2.6 mg/dL (0.6-1.3); POTASSIUM 3.2 mmol/L (3.5-4.5); TOTAL PROTEIN 7.1 g/dL (6.4-8.9)
[2023-08-07] MEDS ORDERED: POTASSIUM CHLOR 10 MEQ/100 ML 10 MEQ/100 ML BAG IV STA (19:19)
--- NOTE | 2023-08-07 20:01 | CT Report ---
PROCEDURE: HEAD WO INDICATIONS: head inj TECHNIQUE: Noncontrast 4.5 mm thick angled axial sections acquired from the foramen magnum to the vertex. For r adiation dose reduction, the following was used: automated exposure control, adjustment of mA and/or kV according to patient size. COMPARISON: None. FINDINGS: Image quality: Excellent. CSF spaces: Basal cisterns are patent. No extra-axial fluid collections. Ventricles are normal in size and shape. Brain: No midline shift. No intracranial masses or hemorrhage. [place]-white matter interface is with in normal limits. Skull and face: Calvarium and visualized facial bones are intact, without suspicious lesions. Sinuses: Visualized sinuses and mastoids are clear. IMPRESSION: No acute intracranial pathology. Reviewed by: Josr Cohn MD on 08/07/2023 8:00 PM PDT Approved by: Josr Cohn MD on 08/07/2023 8:00 PM PDT Station ID: [id number]
--- NOTE | 2023-08-07 20:41 | XRAY Report ---
PROCEDURE: Chest 1 View X-Ray INDICATIONS: hypercalcemia TECHNIQUE: One view of the chest was acquired. COMPARISON: CXR 07/26/2023. FINDINGS: Surgical changes and devices: None. Lungs and pleura: No pleural effusions or pneumothorax. Lungs are clear. Mediastinum: Mediastinal contours appear normal. Heart size is normal. Bones and chest wall: No suspicious bony lesions. Overlying soft tissues appear unremarkable. IMPRESSION: No acute cardiopulmonary process. Reviewed by: Josr Cohn MD on 08/07/2023 8:40 PM PDT Approved by: Josr Cohn MD on 08/07/2023 8:40 PM PDT Station ID: [id number]
--- NOTE | 2023-08-07 20:57 | HISTORY & PHYSICAL EXAMINATION ---
Chief Complaint - Chief Complaint Chief Complaint: weakness History of Present Illness - Admitted From Admitted From:: home - History Obtained From Exam Limitations: telemedicine - History of Present Illness HPI Comment/Other: Ms Nicolas is a 63 yo F with hx psoriasis (on methotrexate weekly), DM II diet controlled, HTN, migraine headaches. Presents to ER with c/o weakness, ground level fall. Pt felt weak, legs gave out and she hit the back of her head on the floor, denies LOC. Pt has been feeling nauseous and vomited this week. Her gait has been progressively unstable over the past month, has a hard time getting up stairs now requires assistance from her . She feels sore/achy in her legs. Denies hematuria, dysuria or any changes in urination patterns/habits. Denies diarrhea or constipation. Denies blood in stool. Labs done at dermatology office yesterday: WBC 16.6, plt 543, LFTs wnl, BUN 29, Cr 2.23 (last month Cr 0.9). No prior history of kidney disease. 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 brother had tongue cancer. grandmother lung cancer. - Substance History Use: Uses substance without health or social issues: Tobacco (quit 50 years ago ) - POLST Patient has POLST: No Meds/Allgy - Home Medications Home Medications: Ambulatory Orders Medication Instructions Recorded Confirmed Aspirin [Aspir 81] 81 mg PO BID 07/26/14 09/22/21 Clobetasol Propionate/Emoll 1 applic TOP DAILY PRN 07/26/14 09/22/21 [Clobetasol Emollnt 0.05% Foam] Fexofenadine [Haily] 180 mg PO QPM 07/26/14 09/22/21 Methotrexate [Methotrexate Sodium] 100 mg PO ONCE 07/26/14 09/22/21 Minocycline [Minocycline HCl] 100 mg PO BID 07/26/14 09/22/21 Telmisartan/Hydrochlorothiazid 1 tab PO QPM 07/26/14 09/22/21 [Micardis Hct 80-12.5 mg Tablet] Tolterodine [Detrol LA] 2 mg PO QPM 07/26/14 09/22/21 Topiramate 50 mg PO BID 07/26/14 09/22/21 Cyclobenzaprine [Flexeril] 10 mg PO HS 06/21/21 09/22/21 Levothyroxine Sodium [Synthroid] 112 mcg ORAL DAILY 06/21/21 09/22/21 Melatonin 5 mg PO HS 06/21/21 09/22/21 Nitrofurantoin [Macrobid] 100 mg PO BID #10 tab 09/22/21 Sulfamethox/Trimeth 800/160 1 each PO BID #14 tablet 03/18/23 [Bactrim Ds 800/160] - Allergies Allergies/Adverse Reactions: Allergies Allergy/AdvReac Type Severity Reaction Status Date / Time codeine Allergy Unknown Verified 07/26/23 17:12 mussels Allergy Unknown Verified 07/26/23 17:31 Review of Systems - Constitutional Constitutional: reports: Fatigue, Weakness, Poor appetite, Weight loss (7-8 lbs in the last month). denies: Diaphoresis, Night sweats - Eyes Eyes: denies: Blurred vision, Vision loss, Dipolpia - Ears, Nose & Throat Ears, Nose & Throat: denies: Hearing loss - Cardiovascular Cariovascular: reports: Chest pain (couple of weeks ago, resolved. today achy pain/muscle ache, resolved after an hour without intervention). denies: Palpitations - Respiratory Respiratory: denies: Cough, Sputum production, Wheezing - Gastrointestinal Gastrointestinal: reports: Nausea, Vomiting. denies: Constipation, Diarrhea - Genitourinary Genitourinary: denies: Dysuria, Frequency, Hematuria - Musculoskeletal Musculoskeletal: reports: Muscle aches (legs) - Integumentary Integumentary: denies: Rash, Pruritis - Neurological Neurological: reports: General weakness, Dizziness. denies: Focal weakness, Headache - Endocrine Endocrine: denies: Polyuria, Polydypsia - Hematologic/Lymphatic Hematologic/Lymphatic: denies: Bruising Prior Level of Functionality: ambulates independently - progressively weak over the past month Exam - Vital Signs Reviewed Vital Signs: Yes Vital Signs: Vital Signs x48h Temp Pulse Resp BP Pulse Ox 08/07/23 17:31 36.3 C L 69 18 150/76 H 98 - Physical Exam General Appearance: positive: No acute distress, Alert Eyes Bilateral: positive: Normal inspection ENT: positive: ENT inspection nml Neck: positive: Nml inspection Respiratory: positive: No respiratory distress Skin: positive: Color nml, No rash Neurologic/Psychiatric: positive: Oriented x3, Mood/affect nml Comments/Other: limited exam, telemedicine Conclusion/Plan - Lab Results Lab results reviewed: Yes Fish Bones: 08/07/23 18:14 08/07/23 18:44 - Diagnostic Imaging Results Diagnostic Imaging Results: positive: Final report reviewed (CXR / CT head) - Other Other Results/Comments: Hypercalcemia and FANY -Etiology unclear, work up in process -Continue aggressive IV fluid resuscitation -Zoledronic acid contraindicated for FANY/CrCl <35 - hold -Subcutaneous calcitonin - not on formulary -F/u Vit D level, PTHrp -CXR/CT head unremarkable - consider further imaging ideally with contrast if creatinine improves -F/u UA -F/u renal US Leukocytosis/thrombocytosis -?Reactive -Currently afebrile -Monitor closely and trend labs DM II -SSI -Diet controlled HTN -BP stable, monitor Psoriasis -Weekly methotrexate DVT ppx: Heparin sc Full code Core Measures - DVT/VTE - Prophylaxis VTE/DVT Device ordered at admit?: Yes Telemedicine Consult Details - Provider Location & Consult Time Telemedicine consultation conducted via videoconferencing?: Yes List names and roles of persons who participated in consult:: Dr Chapa, patient and her Telemedicine provider location:: [place]
--- NOTE | 2023-08-07 21:01 | Ultrasound Report ---
PROCEDURE: Retroperitoneal INDICATIONS: Acute renal failure TECHNIQUE: Real-time scanning was performed of the retroperitoneal organs, with image documentation. COMPARISON: 09/22/2021 FINDINGS: Kidneys: . Right kidney measures 10.8 cm long; left kidney measures 11.1 cm long. Right renal anish ical thickness is 1.6 cm; left renal cortical thickness is 1.1 cm. No hydronephrosis or nephrolithia sis. Bladder: Pre-void bladder volume is 167 mL. Patient could not void for postvoid imaging. Pre-void i mages demonstrate no intraluminal masses or stones. On pre-void images, both ureteral jets are noted with color Doppler interrogation. (Of note, ureteral jets may not be detectable in up to 25% of marshal es due to insufficient differences in specific gravity between ureteral and bladder urine). Miscellaneous: No free abdominal fluid. IMPRESSION: No hydronephrosis or evidence of nephrolithiasis. Reviewed by: Donny Galvez MD on 08/07/2023 9:00 PM PDT Approved by: Donny Galvez MD on 08/07/2023 9:00 PM PDT Station ID: [id number]
[2023-08-07] MEDS ORDERED: ONDANSETRON 4 MG/2 ML VIAL IVP PRN (21:33)
[2023-08-07 23:09] LABS: BILIRUBIN,URINE NEGATIVE (NEGATIVE); GLUCOSE, URINE (UA) NEGATIVE (NEGATIVE); KETONES,URINE (UA) NEGATIVE (NEGATIVE); LEUKOCYTE ESTERASE, URINE TRACE (NEGATIVE); NITRITE,URINE NEGATIVE (NEGATIVE); OCCULT BLOOD,URINE NEGATIVE (NEGATIVE); PH,URINE 5.5 PH (5.0-7.5); PROTEIN,URINE NEGATIVE (NEGATIVE); UROBILINOGEN,URINE 0.2 (NORMAL) E.U./dL (NORMAL)
[2023-08-07 23:15] LABS: CLARITY,URINE CLEAR (CLEAR)
[2023-08-07 23:24] LABS: BACTERIA,URINE Few /HPF (None Seen); CASTS, URINE 3-5 Hyaline Casts /LPF; RBC,URINE 0-5 /HPF (0-5); SQUAMOUS EPITHELIAL CELL,UR MOD Squamous (<= Few)
[2023-08-07] MEDS: SODIUM CHLORIDE 0.9% 1,000 ML IV SCH (23:50)
[2023-08-07] MEDS: SODIUM CHLORIDE FLUSH 0.9% 10 ML SYRINGE IVP SCH (23:50)
[2023-08-08] MEDS: ACETAMINOPHEN 325 MG TABLET PO PRN (00:43)
[2023-08-08 06:16] LABS: BASOPHILS # (AUTO) 0.1 10^3/uL (0.0-0.1); BASOPHILS % (AUTO) 0.6 %; EOSINOPHILS # (AUTO) 0.1 10^3/uL (0.0-0.7); EOSINOPHILS % (AUTO) 0.8 %; HCT - HEMATOCRIT 36.1 % (37.0-47.0); HGB - HEMOGLOBIN 12.4 g/dL (12.0-16.0); LYMPHOCYTES # (AUTO) 2.2 10^3/uL (1.5-3.5); LYMPHOCYTES % (AUTO) 15.8 %; MEAN CORPUSCULAR HEMOGLOBIN 32.6 pg (27.0-31.0); MEAN CORPUSCULAR HGB CONC 34.3 g/dL (32.0-36.0); MEAN PLATELET VOLUME 8.8 fL (7.9-10.8); MONOCYTES # (AUTO) 1.4 10^3/uL (0.0-1.0); NEUTROPHILS # (AUTO) 10.2 10^3/uL (1.5-6.6); NEUTROPHILS % (AUTO) 72.3 %; PLT - PLATELET COUNT 429 10^3/uL (130-450); RED CELL DISTRIBUTION WIDTH 13.7 % (12.0-15.0); WHITE BLOOD COUNT 14.1 x10^3/uL (4.8-10.8)
[2023-08-08 06:30] LABS: ALBUMIN 3.4 g/dL (3.2-5.5); MAGNESIUM 2.5 mg/dL (1.7-2.3); PHOSPHORUS 3.3 mg/dL (2.5-5.0)
[2023-08-08 06:38] LABS: CALCIUM 13.7 mg/dL (8.5-10.3)
[2023-08-08 06:39] LABS: ALBUMIN/GLOBULIN RATIO 1.3 (1.0-2.2); BILIRUBIN,TOTAL 0.4 mg/dL (0.2-1.0); CALCIUM, IONIZED 1.82 mmol/L (1.15-1.33); CREATININE 2.3 mg/dL (0.6-1.3); VBG PH 7.401 (7.31-7.41)
[2023-08-08] MEDS: SODIUM CHLORIDE 0.9% 1,000 ML IV SCH ×4 (07:05→22:07)
[2023-08-08] MEDS: SODIUM CHLORIDE FLUSH 0.9% 10 ML SYRINGE IVP SCH ×2 (07:05→17:32)
[2023-08-08 07:09] LABS: THYROID STIMULATING HORMONE 5.92 uIU/mL (0.34-5.60)
[2023-08-08] MEDS: INSULIN LISPRO 300 UNIT/3 ML PEN SUBQ SCH ×4 (08:25→20:42)
[2023-08-08] MEDS: HEPARIN 5,000 UNIT/ML VIAL SUBQ SCH ×2 (10:48→20:42)
--- NOTE | 2023-08-08 11:43 | PHARMACY PROGRESS NOTE ---
- Best Possible Medication History Admit Date and Time: 08/07/232132 Processed by: Pharmacy Medication History completed: Yes Patient Interview: Completed Secondary Source(s): Insurance records (COMPTETED BY ZAKIYA DRAKE TECH. PER NOELLE, PT HAS BEEN OUT OF LEVOTHYROXINE X 1 MONTH DUE TO NO PCP. PT TURNED AWAY FROM [facility]ASE ONCE SHE TURNED 63. FOUND NEW PCP RECENTLY, JOAN CASAS IN [place].) As the person ultimately responsible for medication therapy, providers are able to order a medication from an existing home medication list in [facility] via the "Reconcile Routine" prior to Confirmation of that medication by collection support specialist. Such practice is discouraged except when the physician, in their clinical judgment, deems that a medical need exists for a medication without regard to previous use.
[2023-08-08 12:09] LABS: ESTIMATED AVERAGE GLUCOSE 134 mg/dL (70-100); HEMOGLOBIN A1c% 6.3 % (4.27-6.07)
[2023-08-08] MEDS ORDERED: SODIUM CHLORIDE 0.9% 1,000 ML IV SCH (15:19)
[2023-08-08 16:27] LABS: CALCIUM 12.5 mg/dL (8.5-10.3)
--- NOTE | 2023-08-08 19:50 | PROVIDER PROGRESS NOTE ---
Assessment/Plan - Problem List (1) FANY (acute kidney injury) Assessment/Plan: Etiology is poss from dehydration, given the Hx of poor appetite and HydroDIURIL use Plan: Avoid nephrotoxins Continue with IV hydration but will slow down the rate fro 250 cc/hr to 83.33 cc/hr Obtain renal ultrasound for more definitive kidney evaluation (2) Hypercalcemia PTH level came back low, indicating her elev Ca++ is not from high PTH. Her U/A showed no protein, in consideration of mult myeloma. CXR showed no tumor to syggest lung CA. Etiology unclear, work up in process All labs were reviewed: Ca 13.7>> 12.4 after 10 hours of aggressive iv hydration w/ saline Plan: Continue IV fluid resuscitation Zoledronic acid contraindicated for FANY/CrCl <35 - was not ordered Subcutaneous calcitonin - not on formulary - was not ordered Awaiting Vit D level CXR/CT head unremarkable - consider further imaging ideally with contrast, if creatinine improves Await renal US (3) Hyponatremia She appears to have hypovolemic hyponatremia consistent with volume depletion. This is not pseudohyponatremia due to excessively high glu She is today 4 L positive after getting NS IV fluids We are following her serum sodium several times per day All labs were reviewed: Na 126 >> 132 after 24 hours of aggressive iv hydration w/ saline Plan: I will decrease the NS rate from 250 cc/hr to prevent poss pulm edema Follow serum sodium every 8-12 hours Plan is to avoid sodium correction that is excessively fast to prevent [employer] damage, goal Na increase 6-8 mEq per 24 hr (4) Leukocytosis/thrombocytosis Possibly Reactive She is still currently afebrile Plan: Monitor closely and trend labs (5) Borderline DM II She used to be on Metformin. Then she lost 30-40 lbs and no longer takes DM meds, just a DM diet Her A1c came back at 6.3 Plan: SSInsulin coverage for fingerstick results, hypoglycemia protocol DM diet to continue (6) Hx of HTN BP stable and she has not been started on her home meds (7) Psoriasis She was on weekly methotrexate for alopecia, had possible Fibromyalgia and probbale psoriasis Plan: No MTX while here (8) Fall at home Plan: Will order PT and OT evaluations Will get orthostatic vital sign checks Continue with hydration Hold her home dose of HydroDIURIL (9) Generalized weakness The patient and her requested that I speak to the patient's [id number] who is an Ophthalmology doctor in [place]. I spoke to Dr. Jacqueline Nicolas today, who gave me more details about the patient's history (which is included above) I learned that the patient started to get weakness about 3 weeks ago. She did not want to seek medical care because she did not want to "be a burden". Approximately 3 days ago she rapidly declined and was too weak to get out of bed, fell at home, appetite was poor, she was more drowsy. Dr Nicolas did not know that te pt had stopped taking her Synthroid 1 month ago (as per reconciled med list). Also, Dr Nicolas was not aware of all the meds she was on. Plan: Work-up as above in #8 and 1 - 4 - Current Meds Current Meds: Current Medications Generic Name Dose Route Start Last Admin Trade Name Freq PRN Reason Stop Dose Admin Acetaminophen 650 mg 08/07/23 21:33 08/08/23 00:43 Acetaminophen 325 Mg Tablet PO 650 mg Q4HR PRN Administration Pain 1 to 4, or Fever Heparin Sodium (Porcine) 5,000 unit 08/08/23 09:00 08/08/23 10:48 Heparin 5,000 Unit/Ml Vial SUBQ 5,000 unit BID BRAN Administration Insulin Human Lispro 1 - 5 unit 08/08/23 08:00 08/08/23 17:31 Insulin Lispro 300 Unit/3 Ml Pen SUBQ Not Given 0800,1200,1700,2100 COUNT INCLUDES THE [facility] Protocol Sodium Chloride 10 ml 08/08/23 01:00 08/08/23 17:32 Sodium Chloride Flush 0.9% 10 Ml Syringe IVP Not Given 0100,0900,1700 COUNT INCLUDES THE [facility] - Lab Result Fish Bone Diagrams: 08/08/23 05:15 08/08/23 15:46 - Additional Planning My Orders: My Active Orders 08/08/23 Evaluate and Treat OT [OT] Routine Evaluate and Treat PT [PT] Routine 08/08/23 12:46 Telemetry- [RC] Q4HR 08/08/23 19:37 Sodium Chloride 0.9% [Normal Saline 0.9%] 1,000 ml IV 83.33 mls/hr 08/08/23 19:38 Orthostatic [Vital Signs - Orthostatic] [RC] QSHIFT Vital Signs- Do Not Awaken For [RC] HS 08/08/23 19:39 Retroperitoneal Limited [US] Routine 08/09/23 05:00 BMP - BASIC METABOLIC PANEL [CHEM] DAILYLAB CALCIUM [CHEM] DAILYLAB CBC - COMP BLD CT W/AUTO DIFF [HEME] DAILYLAB MAGNESIUM [CHEM] DAILYLAB 08/09/23 07:00 Levothyroxine [Synthroid] 112 mcg PO AC 08/10/23 05:00 BMP - BASIC METABOLIC PANEL [CHEM] DAILYLAB CALCIUM [CHEM] DAILYLAB 08/11/23 05:00 BMP - BASIC METABOLIC PANEL [CHEM] DAILYLAB CALCIUM [CHEM] DAILYLAB Subjective - Subjective Patient Reports: Other (She feels minimally better, still very fatigued. Denies pain except R kneecap. No N/V, but has no appetite.) Objective Vital Signs: Vital Signs - 24 hr 08/07/23 08/07/23 08/08/23 21:01 22:33 00:53 Temperature 36.0 C L 36.3 C L Heart Rate 67 Heart Rate [ 82 68 Brachial] Heart Rate [ Supine] Respiratory 18 16 18 Rate Blood Pressure 137/83 H Blood Pressure 142/99 H 137/69 H [Left Brachial artery] Blood Pressure [Standing] Blood Pressure [Supine] O2 Saturation 98 99 100 08/08/23 08/08/23 08/08/23 08:00 11:05 12:41 Temperature 36.4 C L 36.6 C Heart Rate Heart Rate [ 66 71 Brachial] Heart Rate [ 72 Supine] Respiratory 18 20 Rate Blood Pressure Blood Pressure 145/59 H 146/55 H [Left Brachial artery] Blood Pressure 152/95 H [Standing] Blood Pressure 135/68 H [Supine] O2 Saturation 98 100 08/08/23 15:12 Temperature 36.5 C Heart Rate Heart Rate [ 69 Brachial] Heart Rate [ Supine] Respiratory 18 Rate Blood Pressure Blood Pressure 144/61 H [Left Brachial artery] Blood Pressure [Standing] Blood Pressure [Supine] O2 Saturation 98 Oxygen O2 Source Room air I&O (Last 24 Hrs): Intake and Output Totals x24h 08/06/23 08/07/23 08/08/23 23:59 23:59 23:59 Intake Total 1100 4299.167 Output Total 1400 Balance 1100 2899.167 General: Alert, Oriented x3 HEENT: Other (Dry mucosa, appears fatigued. Has marked alopcia w/ receding hairline) Neck: Supple, No JVD Neuro: Alert, Non Focal, Other (Appears weak and tired.) Cardiovascular: Regular rate, No murmurs Respiratory: No respiratory distress, Breath sounds nml Abdomen: Normal bowel sounds, Soft, No tenderness Extremities: No clubbing, No edema, No tenderness/swelling - Results Results: Laboratory Results WBC 14.1 x10^3/uL (4.8-10.8) H 08/08/23 05:15 RBC 3.80 10^6/uL (4.20-5.40) L 08/08/23 05:15 Hgb 12.4 g/dL (12.0-16.0) 08/08/23 05:15 Hct 36.1 % (37.0-47.0) L 08/08/23 05:15 MCV 95.0 fL (81.0-99.0) 08/08/23 05:15 MCH 32.6 pg (27.0-31.0) H 08/08/23 05:15 MCHC 34.3 g/dL (32.0-36.0) 08/08/23 05:15 RDW 13.7 % (12.0-15.0) 08/08/23 05:15 Plt Count 429 10^3/uL (130-450) 08/08/23 05:15 MPV 8.8 fL (7.9-10.8) 08/08/23 05:15 Neut # (Auto) 10.2 10^3/uL (1.5-6.6) H 08/08/23 05:15 Lymph # (Auto) 2.2 10^3/uL (1.5-3.5) 08/08/23 05:15 [place] # (Auto) 1.4 10^3/uL (0.0-1.0) H 08/08/23 05:15 Eos # (Auto) 0.1 10^3/uL (0.0-0.7) 08/08/23 05:15 Baso # (Auto) 0.1 10^3/uL (0.0-0.1) 08/08/23 05:15 Absolute Nucleated RBC 0.00 x10^3/uL 08/08/23 05:15 Total Counted 100 08/07/23 18:14 Band Neuts % (Manual) 0 % (0-10) 08/07/23 18:14 Abnorm Lymph % (Manual) 0 % 08/07/23 18:14 Nucleated RBC % 0.0 /100WBC 08/08/23 05:15 Neutrophils # (Manual) 10.3 10^3/uL (1.5-6.6) H 08/07/23 18:14 Lymphocytes # (Manual) 2.8 10^3/uL (1.5-3.5) 08/07/23 18:14 Monocytes # (Manual) 2.3 10^3/uL (0.0-1.0) H 08/07/23 18:14 Eosinophils # (Manual) 0.0 10^3/uL (0-0.7) 08/07/23 18:14 Basophils # (Manual) 0.0 10^3/uL (0-0.1) 08/07/23 18:14 Differential Comment MANUAL DIFFERENTIAL 08/07/23 18:14 Platelet Estimate INCREASED (>450,000) (NORMAL) 08/07/23 18:14 Platelet Morphology NORMAL APPEARANCE (NORMAL) 08/07/23 18:14 RBC Morph Micro Appear NORMAL APPEARANCE (NORMAL) 08/07/23 18:14 VBG pH 7.401 (7.31-7.41) 08/08/23 05:15 Ionized Calcium 1.82 mmol/L (1.15-1.33) H* 08/08/23 05:15 Sodium 133 mmol/L (135-145) L 08/08/23 15:46 Potassium 3.0 mmol/L (3.5-4.5) L 08/08/23 05:15 Chloride 99 mmol/L (101-111) L 08/08/23 05:15 Carbon Dioxide 27 mmol/L (21-32) 08/08/23 05:15 Anion Gap 6.0 (6-13) 08/08/23 05:15 BUN 38 mg/dL (6-20) H 08/08/23 05:15 Creatinine 2.3 mg/dL (0.6-1.3) H 08/08/23 05:15 Estimated GFR (MDRD) 21 (>89) L 08/08/23 05:15 Glucose 93 mg/dL (74-104) 08/08/23 05:15 POC Whole Bld Glucose 91 mg/dL (70 - 100) 08/08/23 16:58 Estimat Average Glucose 134 mg/dL (70-100) H 08/08/23 05:15 Hemoglobin A1c % 6.3 % (4.27-6.07) H 08/08/23 05:15 Calcium 12.5 mg/dL (8.5-10.3) H* 08/08/23 15:46 Phosphorus 3.3 mg/dL (2.5-5.0) 08/08/23 05:15 Magnesium 2.5 mg/dL (1.7-2.3) H 08/08/23 05:15 Total Bilirubin 0.4 mg/dL (0.2-1.0) 08/08/23 05:15 AST 21 IU/L (10-42) 08/08/23 05:15 ALT 21 IU/L (10-60) 08/08/23 05:15 Alkaline Phosphatase 69 IU/L (42-121) 08/08/23 05:15 Total Protein 6.0 g/dL (6.4-8.9) L 08/08/23 05:15 Albumin 3.4 g/dL (3.2-5.5) 08/08/23 05:15 Globulin 2.6 g/dL (2.1-4.2) 08/08/23 05:15 Albumin/Globulin Ratio 1.3 (1.0-2.2) 08/08/23 05:15 TSH 5.92 uIU/mL (0.34-5.60) H 08/08/23 05:15 Total Intact PTH 6 pg/mL (12-88) L 08/07/23 18:44 Urine Color YELLOW 08/07/23 22:15 Urine Clarity CLEAR (CLEAR) 08/07/23 22:15 Urine pH 5.5 PH (5.0-7.5) 08/07/23 22:15 Ur Specific [place] 1.010 (1.002-1.030) 08/07/23 22:15 Urine Protein NEGATIVE mg/dL (NEGATIVE) 08/07/23 22:15 Urine Glucose (UA) NEGATIVE mg/dL (NEGATIVE) 08/07/23 22:15 Urine Ketones NEGATIVE mg/dL (NEGATIVE) 08/07/23 22:15 Urine Occult Blood NEGATIVE (NEGATIVE) 08/07/23 22:15 Urine Nitrite NEGATIVE (NEGATIVE) 08/07/23 22:15 Urine Bilirubin NEGATIVE (NEGATIVE) 08/07/23 22:15 Urine Urobilinogen 0.2 (NORMAL) E.U./dL (NORMAL) 08/07/23 22:15 Ur Leukocyte Esterase TRACE (NEGATIVE) H 08/07/23 22:15 Urine RBC 0-5 /HPF (0-5) 08/07/23 22:15 Urine WBC 6-10 /HPF (0-5) H 08/07/23 22:15 Ur Squamous Epith Cells MOD Squamous (<= Few) H 08/07/23 22:15 Urine Bacteria Few /HPF (None Seen) 08/07/23 22:15 Urine Casts 3-5 Hyaline Casts /LPF 08/07/23 22:15 Ur Microscopic Review INDICATED 08/07/23 22:15 Urine Culture Comments NOT INDICATED 08/07/23 22:15 - Procedures Procedures: Procedures COLONOSCOPY (08/26/14)
[2023-08-09] MEDS: SODIUM CHLORIDE FLUSH 0.9% 10 ML SYRINGE IVP SCH ×3 (00:53→16:08)
[2023-08-09 05:01] LABS: BASOPHILS # (AUTO) 0.1 10^3/uL (0.0-0.1); BASOPHILS % (AUTO) 0.9 %; EOSINOPHILS # (AUTO) 0.2 10^3/uL (0.0-0.7); HCT - HEMATOCRIT 34.8 % (37.0-47.0); HGB - HEMOGLOBIN 11.7 g/dL (12.0-16.0); LYMPHOCYTES # (AUTO) 2.5 10^3/uL (1.5-3.5); LYMPHOCYTES % (AUTO) 21.5 %; MEAN CORPUSCULAR HGB CONC 33.6 g/dL (32.0-36.0); MEAN CORPUSCULAR VOLUME 95.1 fL (81.0-99.0); MEAN PLATELET VOLUME 8.4 fL (7.9-10.8); MONOCYTES # (AUTO) 1.1 10^3/uL (0.0-1.0); NEUTROPHILS # (AUTO) 7.8 10^3/uL (1.5-6.6); NEUTROPHILS % (AUTO) 66.3 %; PLT - PLATELET COUNT 417 10^3/uL (130-450); RED BLOOD COUNT 3.66 10^6/uL (4.20-5.40); RED CELL DISTRIBUTION WIDTH 14.1 % (12.0-15.0); WHITE BLOOD COUNT 11.8 x10^3/uL (4.8-10.8)
[2023-08-09] MEDS: LEVOTHYROXINE 112 MCG TABLET PO SCH ×3 (06:32→16:08)
[2023-08-09 06:36] LABS: MAGNESIUM 1.9 mg/dL (1.7-2.3)
[2023-08-09 06:40] LABS: CREATININE 1.8 mg/dL (0.6-1.3); POTASSIUM 2.7 mmol/L (3.5-4.5)
[2023-08-09] MEDS: HEPARIN 5,000 UNIT/ML VIAL SUBQ SCH ×2 (09:03→20:40)
[2023-08-09] MEDS: INSULIN LISPRO 300 UNIT/3 ML PEN SUBQ SCH ×4 (09:05→21:06)
[2023-08-09] MEDS: SODIUM CHLORIDE 0.9% 1,000 ML IV SCH ×3 (09:08→20:39)
[2023-08-09] MEDS: POTASSIUM CHLOR 10 MEQ/100 ML 10 MEQ/100 ML BAG IV SCH ×4 (12:58→17:29)
--- NOTE | 2023-08-09 14:25 | PROVIDER PROGRESS NOTE ---
Assessment/Plan - Problem List (1) FANY (acute kidney injury) Assessment/Plan: All labs were reviewed. The BUN/creatinine are improving today 40/2.6 at admission>> 33/1.8 today. She is approximately 6 L positive in fluid balance, I would have expected a better improvement in BUN/creatinine by now. The admitting telemedicine night doctor wanted a renal ultrasound however today the coil repair technician said that everything was already evaluated by the retroperitoneal ultrasound which was done in the ER at admission Plan: Continue to avoid nephrotoxins Continue with IV hydration Follow BMP daily (2) Hypercalcemia PTH level came back low, indicating her elev Ca++ is not from high PTH. Her U/A showed no protein, in consideration of mult myeloma. CXR showed no tumor to sugg est lung CA. Her vitamin D level came back within nl limits, excluding that cause. CXR and CT head were unremarkable Etiology unclear, work up in process All labs were reviewed: Ca 13.7>> 12 today Today I called [facility], hoping to transfer pt for higher level of care, or to speak to specialist from endocrinology or heme-onc, and there are no beds open, pts are waiting 7 days, and could not give me any advice (no consult allowed from [facility] unless a "tissue Dx is known"). I then called [facility] to request a transfer to a facility with higher level of care, which is what the patient, and [id number] all request. Plan: Continue IV fluid resuscitation I will start iv BID Lasix, now that she is volume repleted (+6L) Zoledronic acid contraindicated for FANY/CrCl <35 - this has not been ordered Subcutaneous calcitonin - not on formulary - was not ordered I am hoping to do further imaging ideally CT with contrast of body, if/when creatinine improves. I spoke to automotive instructor at length regarding what scan would look for malignancy , scanning the entire body, and she may need Gadolinium, which is also contrainidicated with elev creat. I called the [id number]-cru, Ophtholmologist Dr Jacqueline Nicolas and discussed all the above. She said she would update the pt's . (3) Hypokalemia Suspect this is from poor oral intake before admission plus now getting mostly saline for hydration Plan: Replace with K riders (4) Borderline DM II She used to be on Metformin. Then she lost 30-40 lbs and no longer takes DM meds, just a DM diet Her A1c came back at 6.3 Today her glu was 70 in a.m. and she was symptomatic, got juice and glu >>160 Plan: SSInsulin coverage for fingerstick results, hypoglycemia protocol I will stop DM diet and order a Reg diet (5) Hx of HTN BP stable and she has not been started on her home meds (6) Psoriasis She was on weekly methotrexate for alopecia, had possible Fibromyalgia and probbale psoriasis Plan: No MTX while here (7) Fall at home Plan: I ordered PT and OT evaluations Check orthostatic vital sign checks Continue with hydration Hold her home dose of HydroDIURIL (8) Generalized weakness The patient and her requested that I speak to the patient's [id number] who is an Ophthalmology doctor in [place]. I spoke to Dr. Jacqueline Nicolas yesterday and today. She gave me more details about the patient's history I learned that the patient started to get weakness about 3 weeks ago. She did not want to seek medical care because she did not want to "be a burden". Approximately 3 days before admission she rapidly declined and was too weak to get out of bed, then fell at home, appetite was poor, she has been more drowsy. Dr Nicloas did not know that the pt had stopped taking her Synthroid 1 month ago (as per reconciled med list). Also, Dr Nicolas was not aware of all the meds she was on. Plan: Work-up underway as above (9) Leukocytosis WBC 15>> 14>> 11 today without antibx Possibly Reactive She is still currently afebrile Plan: Monitor closely and trend labs (10) Hypothyroidism When reconciling her med list, our pharmacy learned that she was not taking her thyroid replacement for 1 month, reason unknown Plan: Resume her usual thyroid dose (11) Hyponatremia IMPROVED She appeared to have hypovolemic hyponatremia consistent with volume depletion. This is not pseudohyponatremia due to excessively high glu She is today 6 L positive in fluid status, after getting NS IV fluids All labs were reviewed: Na 126 >> Today sodium 135, after aggressive IV crystalloid infusion Plan: I will decrease the NS rate from 250 cc/hr to prevent poss pulm edema Follow serum sodium daily now - Current Meds Current Meds: Current Medications Generic Name Dose Route Start Last Admin Trade Name Freq PRN Reason Stop Dose Admin Acetaminophen 650 mg 08/07/23 21:33 08/08/23 00:43 Acetaminophen 325 Mg Tablet PO 650 mg Q4HR PRN Administration Pain 1 to 4, or Fever Heparin Sodium (Porcine) 5,000 unit 08/08/23 09:00 08/09/23 09:03 Heparin 5,000 Unit/Ml Vial SUBQ 5,000 unit BID BRAN Administration Sodium Chloride 1,000 mls @ 83.33 mls/hr 08/08/23 19:37 08/09/23 09:08 Normal Saline 0.9% IV 83.33 mls/hr .Q12H1M BRAN Administration Potassium Chloride 10 meq in 100 mls @ 100 mls/hr 08/09/23 12:00 08/09/23 14:15 Potassium Chloride IV 08/09/23 15:59 80 mls/hr Q1H BRAN Administration Insulin Human Lispro 1 - 5 unit 08/08/23 08:00 08/09/23 11:52 Insulin Lispro 300 Unit/3 Ml Pen SUBQ Not Given 0800,1200,1700,2100 [facility] Protocol Levothyroxine Sodium 112 mcg 08/09/23 07:00 08/09/23 11:53 Levothyroxine 112 Mcg Tablet PO 112 mcg AC BRAN Administration Sodium Chloride 10 ml 08/08/23 01:00 08/09/23 09:05 Sodium Chloride Flush 0.9% 10 Ml Syringe IVP Not Given 0100,0900,1700 BRAN - Lab Result Fish Bone Diagrams: 08/10/23 05:45 08/10/23 05:45 - Additional Planning My Orders: My Active Orders 08/08/23 19:37 Sodium Chloride 0.9% [Normal Saline 0.9%] 1,000 ml IV 83.33 mls/hr 08/08/23 19:38 Orthostatic [Vital Signs - Orthostatic] [RC] QSHIFT Vital Signs- Do Not Awaken For [RC] HS 08/09/23 07:00 Levothyroxine [Synthroid] 112 mcg PO AC 08/09/23 12:00 Potassium Chlor 10 Meq/100 ml [Potassium Chloride] 10 meq in 100 ml IV Q1H 08/09/23 Dinner DIET [Regular Diet] [DIET] 08/10/23 05:00 BMP - BASIC METABOLIC PANEL [CHEM] DAILYLAB CALCIUM [CHEM] DAILYLAB CBC W/O DIFF (HEMOGRAM) [HEME] DAILYLAB 08/11/23 05:00 BMP - BASIC METABOLIC PANEL [CHEM] DAILYLAB CALCIUM [CHEM] DAILYLAB CBC W/O DIFF (HEMOGRAM) [HEME] DAILYLAB Subjective - Subjective Patient Reports: Resting Comfortably (She, and at bedside, are nervous about what lab results are and what tests are to be done next) Objective Vital Signs: Vital Signs - 24 hr 08/08/23 08/08/23 08/08/23 15:12 20:45 23:57 Temperature 36.5 C 36.4 C L 36.5 C Heart Rate [ 69 72 82 Brachial] Respiratory 18 16 18 Rate Blood Pressure 144/61 H 142/60 H 148/67 H [Left Brachial artery] O2 Saturation 98 99 99 08/09/23 08/09/23 03:08 07:35 Temperature 36.3 C L 36.6 C Heart Rate [ 80 72 Brachial] Respiratory 18 16 Rate Blood Pressure 139/58 H 151/62 H [Left Brachial artery] O2 Saturation 97 95 Oxygen O2 Source Room air I&O (Last 24 Hrs): Intake and Output Totals x24h 08/07/23 08/08/23 08/09/23 23:59 23:59 23:59 Intake Total 1100 5055.000 1388.019 Output Total 1400 Balance 1100 3655.000 1388.019 General: Alert, Oriented x3, No acute distress, Other (Appears fatigued) Neck: Supple Neuro: Alert, Non Focal, Other (Weak) Cardiovascular: Regular rate Respiratory: No respiratory distress Abdomen: Soft, No tenderness Extremities: No clubbing, No edema - Results Results: Laboratory Results WBC 11.8 x10^3/uL (4.8-10.8) H 08/09/23 04:45 RBC 3.66 10^6/uL (4.20-5.40) L 08/09/23 04:45 Hgb 11.7 g/dL (12.0-16.0) L 08/09/23 04:45 Hct 34.8 % (37.0-47.0) L 08/09/23 04:45 MCV 95.1 fL (81.0-99.0) 08/09/23 04:45 MCH 32.0 pg (27.0-31.0) H 08/09/23 04:45 MCHC 33.6 g/dL (32.0-36.0) 08/09/23 04:45 RDW 14.1 % (12.0-15.0) 08/09/23 04:45 Plt Count 417 10^3/uL (130-450) 08/09/23 04:45 MPV 8.4 fL (7.9-10.8) 08/09/23 04:45 Neut # (Auto) 7.8 10^3/uL (1.5-6.6) H 08/09/23 04:45 Lymph # (Auto) 2.5 10^3/uL (1.5-3.5) 08/09/23 04:45 [place] # (Auto) 1.1 10^3/uL (0.0-1.0) H 08/09/23 04:45 Eos # (Auto) 0.2 10^3/uL (0.0-0.7) 08/09/23 04:45 Baso # (Auto) 0.1 10^3/uL (0.0-0.1) 08/09/23 04:45 Absolute Nucleated RBC 0.00 x10^3/uL 08/09/23 04:45 Total Counted 100 08/07/23 18:14 Band Neuts % (Manual) 0 % (0-10) 08/07/23 18:14 Abnorm Lymph % (Manual) 0 % 08/07/23 18:14 Nucleated RBC % 0.0 /100WBC 08/09/23 04:45 Neutrophils # (Manual) 10.3 10^3/uL (1.5-6.6) H 08/07/23 18:14 Lymphocytes # (Manual) 2.8 10^3/uL (1.5-3.5) 08/07/23 18:14 Monocytes # (Manual) 2.3 10^3/uL (0.0-1.0) H 08/07/23 18:14 Eosinophils # (Manual) 0.0 10^3/uL (0-0.7) 08/07/23 18:14 Basophils # (Manual) 0.0 10^3/uL (0-0.1) 08/07/23 18:14 Differential Comment MANUAL DIFFERENTIAL 08/07/23 18:14 Platelet Estimate INCREASED (>450,000) (NORMAL) 08/07/23 18:14 Platelet Morphology NORMAL APPEARANCE (NORMAL) 08/07/23 18:14 RBC Morph Micro Appear NORMAL APPEARANCE (NORMAL) 08/07/23 18:14 VBG pH 7.401 (7.31-7.41) 08/08/23 05:15 Ionized Calcium 1.82 mmol/L (1.15-1.33) H* 08/08/23 05:15 Sodium 135 mmol/L (135-145) 08/09/23 04:45 Potassium 2.7 mmol/L (3.5-4.5) L 08/09/23 04:45 Chloride 106 mmol/L (101-111) 08/09/23 04:45 Carbon Dioxide 23 mmol/L (21-32) 08/09/23 04:45 Anion Gap 6.0 (6-13) 08/09/23 04:45 BUN 33 mg/dL (6-20) H 08/09/23 04:45 Creatinine 1.8 mg/dL (0.6-1.3) H 08/09/23 04:45 Estimated GFR (MDRD) 28 (>89) L 08/09/23 04:45 Glucose 94 mg/dL (74-104) 08/09/23 04:45 POC Whole Bld Glucose 91 mg/dL (70 - 100) 08/09/23 11:38 Estimat Average Glucose 134 mg/dL (70-100) H 08/08/23 05:15 Hemoglobin A1c % 6.3 % (4.27-6.07) H 08/08/23 05:15 Calcium 12.0 mg/dL (8.5-10.3) H* 08/09/23 04:45 Phosphorus 3.3 mg/dL (2.5-5.0) 08/08/23 05:15 Magnesium 1.9 mg/dL (1.7-2.3) 08/09/23 04:45 Total Bilirubin 0.4 mg/dL (0.2-1.0) 08/08/23 05:15 AST 21 IU/L (10-42) 08/08/23 05:15 ALT 21 IU/L (10-60) 08/08/23 05:15 Alkaline Phosphatase 69 IU/L (42-121) 08/08/23 05:15 Total Protein 6.0 g/dL (6.4-8.9) L 08/08/23 05:15 Albumin 3.4 g/dL (3.2-5.5) 08/08/23 05:15 Globulin 2.6 g/dL (2.1-4.2) 08/08/23 05:15 Albumin/Globulin Ratio 1.3 (1.0-2.2) 08/08/23 05:15 Vitamin D 25-Hydroxy 62.2 ng/mL (30.0-100.0) 08/07/23 20:11 TSH 5.92 uIU/mL (0.34-5.60) H 08/08/23 05:15 Total Intact PTH 6 pg/mL (12-88) L 08/07/23 18:44 Urine Color YELLOW 08/07/23 22:15 Urine Clarity CLEAR (CLEAR) 08/07/23 22:15 Urine pH 5.5 PH (5.0-7.5) 08/07/23 22:15 Ur Specific [place] 1.010 (1.002-1.030) 08/07/23 22:15 Urine Protein NEGATIVE mg/dL (NEGATIVE) 08/07/23 22:15 Urine Glucose (UA) NEGATIVE mg/dL (NEGATIVE) 08/07/23 22:15 Urine Ketones NEGATIVE mg/dL (NEGATIVE) 08/07/23 22:15 Urine Occult Blood NEGATIVE (NEGATIVE) 08/07/23 22:15 Urine Nitrite NEGATIVE (NEGATIVE) 08/07/23 22:15 Urine Bilirubin NEGATIVE (NEGATIVE) 08/07/23 22:15 Urine Urobilinogen 0.2 (NORMAL) E.U./dL (NORMAL) 08/07/23 22:15 Ur Leukocyte Esterase TRACE (NEGATIVE) H 08/07/23 22:15 Urine RBC 0-5 /HPF (0-5) 08/07/23 22:15 Urine WBC 6-10 /HPF (0-5) H 08/07/23 22:15 Ur Squamous Epith Cells MOD Squamous (<= Few) H 08/07/23 22:15 Urine Bacteria Few /HPF (None Seen) 08/07/23 22:15 Urine Casts 3-5 Hyaline Casts /LPF 08/07/23 22:15 Ur Microscopic Review INDICATED 08/07/23 22:15 Urine Culture Comments NOT INDICATED 08/07/23 22:15 - Procedures Procedures: Procedures COLONOSCOPY (08/26/14)
[2023-08-09] MEDS: FUROSEMIDE 40 MG/4 ML VIAL IVP SCH (17:07)
[2023-08-10] MEDS: SODIUM CHLORIDE 0.9% 1,000 ML IV SCH ×2 (04:42→15:56)
[2023-08-10] MEDS: SODIUM CHLORIDE FLUSH 0.9% 10 ML SYRINGE IVP SCH ×3 (04:42→17:33)
[2023-08-10] MEDS: LEVOTHYROXINE 112 MCG TABLET PO SCH (04:44)
[2023-08-10 05:51] LABS: HCT - HEMATOCRIT 33.3 % (37.0-47.0); HGB - HEMOGLOBIN 11.3 g/dL (12.0-16.0); MEAN CORPUSCULAR HEMOGLOBIN 32.6 pg (27.0-31.0); MEAN CORPUSCULAR HGB CONC 33.9 g/dL (32.0-36.0); MEAN PLATELET VOLUME 8.5 fL (7.9-10.8); RED BLOOD COUNT 3.47 10^6/uL (4.20-5.40); RED CELL DISTRIBUTION WIDTH 14.6 % (12.0-15.0); WHITE BLOOD COUNT 9.2 x10^3/uL (4.8-10.8)
[2023-08-10 06:09] LABS: CALCIUM 10.9 mg/dL (8.5-10.3); CREATININE 1.7 mg/dL (0.6-1.3); PHOSPHORUS 2.3 mg/dL (2.5-5.0)
[2023-08-10] MEDS: INSULIN LISPRO 300 UNIT/3 ML PEN SUBQ SCH ×4 (08:19→20:36)
[2023-08-10 08:46] LABS: ALBUMIN 3.2 g/dL (3.2-5.5); ALKALINE PHOSPHATASE 66 IU/L (42-121); ALT ALANINE AMINOTRANSFERASE 18 IU/L (10-60); AST ASPARTATE AMINOTRANSFERASE 19 IU/L (10-42); BILIRUBIN,DIRECT < 0.10 mg/dL (0.03-0.18); BILIRUBIN,TOTAL 0.4 mg/dL (0.2-1.0); TOTAL PROTEIN 6.2 g/dL (6.4-8.9)
[2023-08-10] MEDS: FUROSEMIDE 40 MG/4 ML VIAL IVP SCH ×2 (08:49→17:33)
[2023-08-10] MEDS: SODIUM CHLORIDE FLUSH 0.9% 10 ML SYRINGE IVP PRN (08:49)
[2023-08-10] MEDS: HEPARIN 5,000 UNIT/ML VIAL SUBQ SCH ×2 (08:50→21:27)
--- NOTE | 2023-08-10 09:06 | PROVIDER PROGRESS NOTE ---
Assessment/Plan - Problem List (1) FANY (acute kidney injury) Assessment/Plan: All labs were reviewed. The BUN/creatinine are improving today 40/2.6 at admission>> 36/1.7 today. She is approximately 7 L positive in fluid balance, I would have expected a better improvement in BUN/creatinine by now. Her retroperitoneal ultrasound had no signif findings Plan: Continue to avoid nephrotoxins Continue with IV hydration Follow BMP daily (2) Hypercalcemia Her Ca was 16 at admission, and other labs showed a low PTH, normal vit D. All labs were reviewed. Today her calcium is 10.9. She is still on IV NS. Yesterday afternoon I started IV Lasix. She is 7 L positive in fluid balance today 08/10. Today I spoke to an Oncologist at [facility], Dr. Gustavo Medrano. We reviewed her case. He advised starting Zoledronic acid when her creatinine will allow it (I then spoke to our pharmacist, Cody and her GFR is 28, so not starting Zoledronic acid today). The Oncologist advised awaiting the results of her SPEP and also get a serum free chain test (which may have results sooner than the SPEP). He does recommend she undergo a CT scan from head to groin, noncontrast if the creatinine will not allow, to look for a cancer and then it would need a biopsy. Plan: I will check a creatinine this afternoon and attempt to get a CT with contrast from head to groin, looking for a cancer. Alternative is an MRI with gadolinium however this would be a 2-hour imaging protocol and the patient has claustrophobia and says she would like to get sedated for that. Continue to give NS iv and IV Lasix doses Follow creat daily Continue to follow calcium level daily Recheck her albumin with a.m. labs I called the [id number], Ophtholmologist Dr Jacqueline Nicolas ([phone]) and d iscussed all the above. (3) Hypokalemia K is 2.8 today. Suspect this is from poor oral intake before admission plus Lasix started yesterday Plan: Replace with K riders and po Hold her home dose of HydroDIURIL Follow BMP daily (4) Borderline DM II She used to be on Metformin. Then she lost 30-40 lbs and no longer takes DM meds, just a DM diet Her A1c came back at 6.3 On 08/10 her glu was 70 in a.m. and she was symptomatic, got juice and glu >>160 Plan: SSInsulin coverage for fingerstick results, hypoglycemia protocol I stopped DM diet and ordered a Reg diet (5) Hx of HTN BP stable and she has not been started on her home meds (6) Psoriasis She was on weekly methotrexate for alopecia, had possible Fibromyalgia and probbale psoriasis Plan: No MTX while here (7) Fall at home I suspect this was from electtroluyte abnormalities, and not taking her thyroid med for 1 month. She has had normal orthostatic vital signs here Plan: Await PT and OT evaluations Continue with hydration Hold her home dose of HydroDIURIL (8) Generalized weakness The patient and her requested that I speak to the patient's [id number] who is an Ophthalmology doctor in [place]. I spoke to Dr. Jacqueline Nicolas yesterday and today. She gave me more details about the patient's history I learned that the patient started to get weakness about 3 weeks ago. She did not want to seek medical care because she did not want to "be a burden". Approximately 3 days before admission she rapidly declined and was too weak to get out of bed, then fell at home, appetite was poor, she has been more drowsy. Dr Nicolas did not know that the pt had stopped taking her Synthroid 1 month ago (as per reconciled med list). Also, Dr Nicolas was not aware of all the meds she was on. Plan: Work-up underway as above (9) Hypothyroidism When reconciling her med list, our pharmacy learned that she was not taking her thyroid replacement for 1 month, reason unknown Plan: I resumed her usual thyroid dose (10) Hyponatremia RESOLVED She appeared to have hypovolemic hyponatremia consistent with volume depletion. This is not pseudohyponatremia due to excessively high glu She is today 7 L positive in fluid status, after getting NS IV fluids All labs were reviewed: Na 126 >> sodium 137 today, after aggressive IV crystalloid infusion Plan: Cont iv NS Follow serum sodium daily (11) Leukocytosis RESOLVED WBC 15>> 14>> 11 today without antibx Possibly Reactive She is still currently afebrile Plan: Monitor closely and trend labs - Current Meds Current Meds: Current Medications Generic Name Dose Route Start Last Admin Trade Name Freq PRN Reason Stop Dose Admin Acetaminophen 650 mg 08/07/23 21:33 08/08/23 00:43 Acetaminophen 325 Mg Tablet PO 650 mg Q4HR PRN Administration Pain 1 to 4, or Fever Furosemide 40 mg 08/09/23 18:00 08/10/23 08:49 Furosemide 40 Mg/4 Ml Vial IVP 40 mg 0800,1800 BRAN Administration Heparin Sodium (Porcine) 5,000 unit 08/08/23 09:00 08/10/23 08:50 Heparin 5,000 Unit/Ml Vial SUBQ 5,000 unit BID BRAN Administration Sodium Chloride 1,000 mls @ 125 mls/hr 08/09/23 15:43 08/10/23 07:45 Normal Saline 0.9% IV 125 mls/hr .Q8H BRAN Infusion Insulin Human Lispro 1 - 5 unit 08/08/23 08:00 08/10/23 08:19 Insulin Lispro 300 Unit/3 Ml Pen SUBQ Not Given 0800,1200,1700,2100 [facility] Protocol Sodium Chloride 10 ml 08/07/23 21:33 08/10/23 08:49 Sodium Chloride Flush 0.9% 10 Ml Syringe IVP 10 ml PRN PRN Administration NEEDED PER PROVIDER ORDERS Sodium Chloride 10 ml 08/08/23 01:00 08/10/23 08:20 Sodium Chloride Flush 0.9% 10 Ml Syringe IVP Not Given 0100,0900,1700 [facility] - Lab Result Fish Bone Diagrams: 08/10/23 05:45 08/10/23 15:04 - Additional Planning My Orders: My Active Orders 08/09/23 15:43 Sodium Chloride 0.9% [Normal Saline 0.9%] 1,000 ml IV 125 mls/hr 08/09/23 Dinner DIET [Regular Diet] [DIET] 08/09/23 18:00 FUROSEMIDE INJ 40mg VIAL [LASIX INJ 40 mg VIAL] 40 mg IVP 0800,1800 08/09/23 19:49 Miscellaenous Nursing Order [RC] QSHIFT 08/10/23 KAPPA+LAMBDA FREE LT CHAIN SER [REFLAB] Urgent PROTEIN ELECTROPHORESIS SERUM [REFLAB] Urgent 08/10/23 08:26 Levothyroxine [Synthroid] 112 mcg PO QDAC 08/10/23 09:00 Potassium Chlor 10 Meq/100 ml [Potassium Chloride] 10 meq in 100 ml IV Q1H Potassium Chloride [Micro-K] 20 meq PO DAILYWM 08/10/23 15:30 CREATININE GFR [CHEM] Routine 08/11/23 05:00 BMP - BASIC METABOLIC PANEL [CHEM] DAILYLAB CALCIUM [CHEM] DAILYLAB CBC W/O DIFF (HEMOGRAM) [HEME] DAILYLAB LIVER PANEL [CHEM] DAILYLAB Objective Vital Signs: Vital Signs - 24 hr 08/09/23 08/09/23 08/09/23 11:50 15:30 20:10 Temperature 36.6 C 36.6 C 36.6 C Heart Rate [ 86 70 70 Brachial] Respiratory 14 16 18 Rate Blood Pressure 155/85 H 142/70 H 134/53 H [Left Brachial artery] O2 Saturation 100 100 99 08/09/23 08/10/23 08/10/23 23:26 04:33 07:45 Temperature 36.5 C 36.3 C L 36.6 C Heart Rate [ 73 77 70 Brachial] Respiratory 17 17 18 Rate Blood Pressure 141/68 H 144/60 H 140/63 H [Left Brachial artery] O2 Saturation 100 99 98 Oxygen O2 Source Room air I&O (Last 24 Hrs): Intake and Output Totals x24h 08/08/23 08/09/23 08/10/23 23:59 23:59 23:59 Intake Total 5055.000 3343.829 1781.25 Output Total 1400 Balance 3655.000 3343.829 1781.25 - Results Results: Laboratory Results WBC 9.2 x10^3/uL (4.8-10.8) 08/10/23 05:45 RBC 3.47 10^6/uL (4.20-5.40) L 08/10/23 05:45 Hgb 11.3 g/dL (12.0-16.0) L 08/10/23 05:45 Hct 33.3 % (37.0-47.0) L 08/10/23 05:45 MCV 96.0 fL (81.0-99.0) 08/10/23 05:45 MCH 32.6 pg (27.0-31.0) H 08/10/23 05:45 MCHC 33.9 g/dL (32.0-36.0) 08/10/23 05:45 RDW 14.6 % (12.0-15.0) 08/10/23 05:45 Plt Count 370 10^3/uL (130-450) 08/10/23 05:45 MPV 8.5 fL (7.9-10.8) 08/10/23 05:45 Neut # (Auto) 7.8 10^3/uL (1.5-6.6) H 08/09/23 04:45 Lymph # (Auto) 2.5 10^3/uL (1.5-3.5) 08/09/23 04:45 Obion # (Auto) 1.1 10^3/uL (0.0-1.0) H 08/09/23 04:45 Eos # (Auto) 0.2 10^3/uL (0.0-0.7) 08/09/23 04:45 Baso # (Auto) 0.1 10^3/uL (0.0-0.1) 08/09/23 04:45 Absolute Nucleated RBC 0.00 x10^3/uL 08/09/23 04:45 Total Counted 100 08/07/23 18:14 Band Neuts % (Manual) 0 % (0-10) 08/07/23 18:14 Abnorm Lymph % (Manual) 0 % 08/07/23 18:14 Nucleated RBC % 0.0 /100WBC 08/09/23 04:45 Neutrophils # (Manual) 10.3 10^3/uL (1.5-6.6) H 08/07/23 18:14 Lymphocytes # (Manual) 2.8 10^3/uL (1.5-3.5) 08/07/23 18:14 Monocytes # (Manual) 2.3 10^3/uL (0.0-1.0) H 08/07/23 18:14 Eosinophils # (Manual) 0.0 10^3/uL (0-0.7) 08/07/23 18:14 Basophils # (Manual) 0.0 10^3/uL (0-0.1) 08/07/23 18:14 Differential Comment MANUAL DIFFERENTIAL 08/07/23 18:14 Platelet Estimate INCREASED (>450,000) (NORMAL) 08/07/23 18:14 Platelet Morphology NORMAL APPEARANCE (NORMAL) 08/07/23 18:14 RBC Morph Micro Appear NORMAL APPEARANCE (NORMAL) 08/07/23 18:14 VBG pH 7.401 (7.31-7.41) 08/08/23 05:15 Ionized Calcium 1.82 mmol/L (1.15-1.33) H* 08/08/23 05:15 Sodium 137 mmol/L (135-145) 08/10/23 05:45 Potassium 3.0 mmol/L (3.5-4.5) L 08/10/23 05:45 Chloride 108 mmol/L (101-111) 08/10/23 05:45 Carbon Dioxide 22 mmol/L (21-32) 08/10/23 05:45 Anion Gap 7.0 (6-13) 08/10/23 05:45 BUN 26 mg/dL (6-20) H 08/10/23 05:45 Creatinine 1.7 mg/dL (0.6-1.3) H 08/10/23 05:45 Estimated GFR (MDRD) 30 (>89) L 08/10/23 05:45 Glucose 99 mg/dL (74-104) 08/10/23 05:45 POC Whole Bld Glucose 98 mg/dL (70 - 100) 08/10/23 07:43 Estimat Average Glucose 134 mg/dL (70-100) H 08/08/23 05:15 Hemoglobin A1c % 6.3 % (4.27-6.07) H 08/08/23 05:15 Calcium 10.9 mg/dL (8.5-10.3) H 08/10/23 05:45 Phosphorus 2.3 mg/dL (2.5-5.0) L 08/10/23 05:45 Magnesium 1.9 mg/dL (1.7-2.3) 08/09/23 04:45 Total Bilirubin 0.4 mg/dL (0.2-1.0) 08/10/23 05:45 Direct Bilirubin < 0.10 mg/dL (0.03-0.18) 08/10/23 05:45 AST 19 IU/L (10-42) 08/10/23 05:45 ALT 18 IU/L (10-60) 08/10/23 05:45 Alkaline Phosphatase 66 IU/L (42-121) 08/10/23 05:45 Total Protein 6.2 g/dL (6.4-8.9) L 08/10/23 05:45 Albumin 3.2 g/dL (3.2-5.5) 08/10/23 05:45 Globulin 3.0 g/dL (2.1-4.2) 08/10/23 05:45 Albumin/Globulin Ratio 1.3 (1.0-2.2) 08/08/23 05:15 Vitamin D 25-Hydroxy 62.2 ng/mL (30.0-100.0) 08/07/23 20:11 TSH 5.92 uIU/mL (0.34-5.60) H 08/08/23 05:15 Total Intact PTH 6 pg/mL (12-88) L 08/07/23 18:44 Urine Color YELLOW 08/07/23 22:15 Urine Clarity CLEAR (CLEAR) 08/07/23 22:15 Urine pH 5.5 PH (5.0-7.5) 08/07/23 22:15 Ur Specific [place] 1.010 (1.002-1.030) 08/07/23 22:15 Urine Protein NEGATIVE mg/dL (NEGATIVE) 08/07/23 22:15 Urine Glucose (UA) NEGATIVE mg/dL (NEGATIVE) 08/07/23 22:15 Urine Ketones NEGATIVE mg/dL (NEGATIVE) 08/07/23 22:15 Urine Occult Blood NEGATIVE (NEGATIVE) 08/07/23 22:15 Urine Nitrite NEGATIVE (NEGATIVE) 08/07/23 22:15 Urine Bilirubin NEGATIVE (NEGATIVE) 08/07/23 22:15 Urine Urobilinogen 0.2 (NORMAL) E.U./dL (NORMAL) 08/07/23 22:15 Ur Leukocyte Esterase TRACE (NEGATIVE) H 08/07/23 22:15 Urine RBC 0-5 /HPF (0-5) 08/07/23 22:15 Urine WBC 6-10 /HPF (0-5) H 08/07/23 22:15 Ur Squamous Epith Cells MOD Squamous (<= Few) H 08/07/23 22:15 Urine Bacteria Few /HPF (None Seen) 08/07/23 22:15 Urine Casts 3-5 Hyaline Casts /LPF 08/07/23 22:15 Ur Microscopic Review INDICATED 08/07/23 22:15 Urine Culture Comments NOT INDICATED 08/07/23 22:15 - Procedures Procedures: Procedures COLONOSCOPY (08/26/14)
[2023-08-10] MEDS: POTASSIUM CHLORIDE 10 MEQ CAPSULE PO SCH (10:30)
[2023-08-10] MEDS: POTASSIUM CHLOR 10 MEQ/100 ML 10 MEQ/100 ML BAG IV SCH ×3 (10:30→13:32)
[2023-08-10] MEDS ORDERED: CLOBETASOL 0.05% OINT 15 GM TUBE TOP PRN (11:28)
[2023-08-10] MEDS: FOLIC ACID 1 MG TABLET PO SCH (12:01)
[2023-08-10 15:27] LABS: CREATININE 1.7 mg/dL (0.6-1.3)
[2023-08-10] MEDS: SODIUM CHLORIDE 0.65% NASAL SPRAY NAS PRN ×2 (15:56→19:25)
[2023-08-10] MEDS: SOLIFENACIN SUCCINATE 5 MG TABLET PO SCH (21:29)
[2023-08-10] MEDS: ASPIRIN EC 81 MG TABLET PO SCH (21:29)
[2023-08-10] MEDS: TOPIRAMATE 25 MG TABLET PO SCH (21:30)
[2023-08-10] MEDS: LORATADINE 10 MG TABLET PO SCH (21:30)
[2023-08-11] MEDS: SODIUM CHLORIDE 0.9% 1,000 ML IV SCH ×3 (00:03→16:57)
[2023-08-11] MEDS: SODIUM CHLORIDE FLUSH 0.9% 10 ML SYRINGE IVP SCH ×3 (00:03→17:38)
[2023-08-11 05:17] LABS: HCT - HEMATOCRIT 31.8 % (37.0-47.0); HGB - HEMOGLOBIN 10.6 g/dL (12.0-16.0); MEAN CORPUSCULAR HGB CONC 33.3 g/dL (32.0-36.0); MEAN CORPUSCULAR VOLUME 96.1 fL (81.0-99.0); MEAN PLATELET VOLUME 8.5 fL (7.9-10.8); RED BLOOD COUNT 3.31 10^6/uL (4.20-5.40); RED CELL DISTRIBUTION WIDTH 14.6 % (12.0-15.0); WHITE BLOOD COUNT 10.4 x10^3/uL (4.8-10.8)
[2023-08-11 05:39] LABS: ALBUMIN 3.2 g/dL (3.2-5.5); ALKALINE PHOSPHATASE 70 IU/L (42-121); ALT ALANINE AMINOTRANSFERASE 21 IU/L (10-60); AST ASPARTATE AMINOTRANSFERASE 19 IU/L (10-42); BILIRUBIN,DIRECT < 0.10 mg/dL (0.03-0.18); BILIRUBIN,TOTAL 0.3 mg/dL (0.2-1.0); BUN - BLOOD UREA NITROGEN 25 mg/dL (6-20); CARBON DIOXIDE - CO2 22 mmol/L (21-32); CHLORIDE 110 mmol/L (101-111); CREATININE 1.6 mg/dL (0.6-1.3); GFR - MDRD 32 (>89); GLUCOSE 93 mg/dL (74-104); POTASSIUM 3.1 mmol/L (3.5-4.5); SODIUM 139 mmol/L (135-145)
[2023-08-11] MEDS: LEVOTHYROXINE 112 MCG TABLET PO SCH (06:22)
[2023-08-11] MEDS: ASPIRIN EC 81 MG TABLET PO SCH ×2 (08:49→22:00)
[2023-08-11] MEDS: POTASSIUM CHLORIDE 10 MEQ CAPSULE PO SCH (08:49)
[2023-08-11] MEDS: FUROSEMIDE 40 MG/4 ML VIAL IVP SCH (08:49)
[2023-08-11] MEDS: INSULIN LISPRO 300 UNIT/3 ML PEN SUBQ SCH (08:52)
[2023-08-11] MEDS: HEPARIN 5,000 UNIT/ML VIAL SUBQ SCH ×2 (08:53→22:04)
[2023-08-11] MEDS: SODIUM CHLORIDE 0.65% NASAL SPRAY NAS PRN (09:03)
[2023-08-11] MEDS ORDERED: ZOLEDRONIC ACID 4 MG/100 ML 4 MG/100 ML BAG IV ONE (10:00)
[2023-08-11] MEDS ORDERED: ZOLEDRONIC ACID 4 MG/5 ML VIAL IV ONE (10:00)
[2023-08-11] MEDS: TOPIRAMATE 25 MG TABLET PO SCH ×2 (10:41→22:00)
[2023-08-11] MEDS: SODIUM CHLORIDE FLUSH 0.9% 10 ML SYRINGE IVP PRN ×2 (12:10→13:22)
[2023-08-11] MEDS: FOLIC ACID 1 MG TABLET PO SCH (12:18)
--- NOTE | 2023-08-11 12:40 | CT Report ---
PROCEDURE: ABDOMEN/PELVIS W INDICATIONS: Eval for malignancy CONTRAST: 100ml omni 300 TECHNIQUE: After the administration of IV contrast, 5 mm thick sections acquired from the diaphragms to the symp hysis. 5 mm thick coronal and sagittal reformats were acquired. For radiation dose reduction, the f ollowing was used: automated exposure control, adjustment of mA and/or kV according to patient size. COMPARISON: Retroperitoneal ultrasound 09/22/2021 FINDINGS: Image quality: Excellent. Lung bases and heart: Unremarkable. Liver: No solid mass. Liver measures 17.5 cm with steatosis. There is appearance of focal fat sparing along the region of the falciform ligament. Gallbladder and biliary tree: Not visualized. Spleen: No splenomegaly. There is an ill-defined 4 mm focus of low-attenuation within the mid spleen. Pancreas: No pancreatic ductal dilation. Adrenals: No adrenal nodule. Kidneys and ureters: No hydronephrosis. No renal cystic lesion which requires follow up. No solid mas s. Bowel and peritoneum: No bowel distension. No pathologic free fluid. Scattered diverticula are presen t without inflammatory change. Lymph nodes: No central or retroperitoneal adenopathy. Vessels: No infrarenal aortic aneurysm. PELVIS Reproductive organs: Unremarkable. Bladder: No abnormal wall thickening, accounting for underdistension. Pelvic lymph nodes: No pelvic adenopathy by size criteria. Bones: No aggressive osseous abnormality. Other: No significant ventral or inguinal hernia. IMPRESSION: Mild hepatic prominence with steatosis. Diverticulosis. Reviewed by: Deanna Temple MD on 08/11/2023 12:39 PM PDT Approved by: Deanna Temple MD on 08/11/2023 12:39 PM PDT Station ID: [id number]
--- NOTE | 2023-08-11 12:44 | CT Report ---
PROCEDURE: CHEST W INDICATIONS: Eval for malignancy CONTRAST: 100ml omni 300 TECHNIQUE: After the administration of intravenous contrast, 1 mm axial images were acquired from the pulmonary apices through the posterior costophrenic angles. Axial 5 mm soft tissue kernel reconstructions were performed as well as 8 mm axial MIP and coronal and sagittal 5 mm reformations. For radiation dose reduction, the following was used: automated exposure control, adjustment of mA and/or kV according to patient size. COMPARISON: None chest x-ray 08/07/2023. FINDINGS: Image quality: Excellent. Lungs and pleura: No consolidation. No pleural effusions. No pneumothorax. No suspicious pulmonary n odules which require follow up. Mediastinum: Heart size is normal. No pericardial effusion. No large vessel abnormality. There is a s oft tissue density within the mediastinum measuring 8 mm on series 2 image 6. It is immediately infer ior to the partially visualized left thyroid lobe. Chest wall and lower neck: Thyroid is not well visualized. No axillary or supraclavicular adenopathy by size. Bones: No aggressive osseous abnormality. Upper Abdomen: Unremarkable. IMPRESSION: 8 mm soft tissue density inferior to the left thyroid lobe as described above. While this could repre sent a nonspecific lymph node, given history of hypercalcemia, parathyroid adenoma cannot be definiti vely excluded. Further evaluation with nuclear medicine scan as well as thyroid ultrasound and CT wit h parathyroid protocol is recommended. Reviewed by: Deanna Temple MD on 08/11/2023 12:42 PM PDT Approved by: Deanna Temple MD on 08/11/2023 12:42 PM PDT Station ID: [id number]
--- NOTE | 2023-08-11 12:44 | CT Report ---
PROCEDURE: HEAD W INDICATIONS: Eval for CA of bone CONTRAST: 100ml omni 300 TECHNIQUE: 4.5 mm thick angled axial sections acquired from the foramen magnum to the vertex after the administr ation of intravenous contrast. For radiation dose reduction, the following was used: automated expo sure control, adjustment of mA and/or kV according to patient size. COMPARISON: None FINDINGS: Image quality: Excellent. CSF Spaces: Basal cisterns are patent. No extra-axial fluid collections. Ventricles are normal in size and shape. Brain: No midline shift. No intracranial bleeds or masses. No abnormal intracranial enhancement. Harrell-white interface appears normal. Skull and face: Calvarium and visualized facial bones appear intact, without suspicious lesions. Sinuses: Visualized sinuses and mastoids are clear. IMPRESSION: 1. No acute intracranial process. Reviewed by: Deanna Temple MD on 08/11/2023 12:43 PM PDT Approved by: Deanna Temple MD on 08/11/2023 12:43 PM PDT Station ID: [id number]
--- NOTE | 2023-08-11 12:46 | CT Report ---
PROCEDURE: SOFT TISSUE NECK W INDICATIONS: Eval for mass/ Cancer CONTRAST: 100ml omni 300 TECHNIQUE: After the administration of intravenous contrast, 3.0 mm axial sections acquired from the sella to th e aortic arch. Additional oblique axial 3.0 mm sections acquired through the pharynx. 3 mm thick co sim reformats were generated. For radiation dose reduction, the following was used: automated exp osure control, adjustment of mA and/or kV according to patient size. COMPARISON: None. FINDINGS: Image quality: Excellent. Lymph nodes: No enlarged lymph nodes seen throughout the neck. Vessels: Visualized vasculature appears patent. Neck spaces: The oropharynx, nasopharynx, and pharynx demonstrate no mucosal lesions. The vocal cor ds, false vocal cords, pyriform sinuses, epiglottis, vallecula, and tongue base all appear normal. E xtramucosal spaces appear unremarkable. Glands: The parotid and submandibular glands appear normal. The thyroid is grossly unremarkable tho ugh significant artifact is present within this region. There is appearance of the 8 mm soft tissue d ensity inferior to the left thyroid lobe as identified on CT chest of 08/11/2023. Miscellaneous: Visualized brain and orbits appear normal. Lung apices appear clear. Superficial so ft tissues appear normal. Bones: No suspicious bony lesions. Visualized sinuses and mastoids appear unremarkable. IMPRESSION: 8 mm soft tissue density inferior to the left thyroid lobe as previously identified on CT chest of . While this could represent a benign lymph node, other etiologies such as parathyroid adenom a cannot be definitively excluded given indication of hypercalcemia. Further evaluation with nuclear medicine scan, as well as thyroid ultrasound and CT with parathyroid protocol is recommended as indic ated. CLINICAL RECOMMENDATION STATEMENTS: In patients <35 years with an ITN detected on CT, MRI, or extrathyroidal ultrasound, the Committee re commends further evaluation with dedicated thyroid ultrasound if the nodule is "e1 cm and has no susp icious imaging features, and if the patient has normal life expectancy. In patients "e35 years with an ITN detected on CT, MRI, or extrathyroidal ultrasound, the Committee r ecommends further evaluation with dedicated thyroid ultrasound if the nodule is "e1.5 cm and has no s uspicious imaging features, and if the patient has normal life expectancy. (ACR, 2014) Reviewed by: Deanna Temple MD on 08/11/2023 12:44 PM PDT Approved by: Deanna Temple MD on 08/11/2023 12:44 PM PDT Station ID: [id number]
[2023-08-11] MEDS ORDERED: iohexoL-300 100 ML VIAL IVP ONE (12:48)
[2023-08-11] MEDS: POTASSIUM CHLOR 10 MEQ/100 ML 10 MEQ/100 ML BAG IV SCH ×2 (13:23→14:45)
--- NOTE | 2023-08-11 17:35 | PROVIDER PROGRESS NOTE ---
Assessment/Plan - Problem List (1) Hypercalcemia Assessment/Plan: Her Ca was 16 at admission, and other labs showed a low PTH, normal vit D. All labs were reviewed. Today her calcium is 10. She has been getting IV NS. Then 2 days of IV Lasix BID were added. She is 8 L positive in fluid balanceSince her creat is 1.5, she is getting Zolendronic Acid iv x1 today. Today I spoke to Dr. Birmingham, the Oncologist at [facility], the one who heard about this patient yesterday. He advised that we stop the saline hydration, stop IV Lasix, and see what her calcium does on its own, now that she received zoledronic acid today Plan: Will stop NS iv and IV Lasix doses Follow creat daily Continue to monitor her calcium off the hydration as he recommended, and he said if her Ca remains good, she could potentially be discharged in 48 hours and then needs Ca lab tests in 1 week and further oncology management with him within the month (2) Thyroid mass of unclear etiology Assessment/Plan: The patient underwent CT with contrast of her head, neck, chest, abdomen and pelvis. The significant findings were a thyroid mass and a splenic mass. I spoke to Dr. Birmingham, the oncologist at [facility], the one who heard about this patient yesterday. He advised that we stop the saline hydration, IV Lasix and see what her calcium does on its own, now that she received zoledronic acid today He advised that she undergo a thyroid ultrasound scan to see if the mass needs a biopsy. He advised that the patient undergo a bone marrow biopsy while here. He said that she needs follow-up with a calcium level done within a week. We discussed the fact that she has no PCP ([place] she turned 63 which was just [address] ago). [address] Birmingham then said that he would be her oncologist, gave his cell phone [phone]. She will be seen at [facility] in [place] by him for the first visit but then after that she will have visits with him in [place]. Plan: Thyroid ultrasound ordered. Depending on the findings, she may need a biopsy Awaiting SPEP and light chain results and she is still collecting a 24-hour uri ne for urine PEP Will also plan a bone marrow biopsy by IR (today is Sun, will order it to be done next week) I went over all these recommendations and the plan with pt, and 2 other adult family members in the room, and her whshvf-qi-owu Jacqueline Nicolas was on the phone. (3) FANY (acute kidney injury) All labs were reviewed. The BUN/creatinine are improving today 40/2.6 at admission>> 25/1.6 today. She is approximately 8 L positive in fluid balance Her retroperitoneal ultrasound had no signif findings Plan: Continue to avoid nephrotoxins I will stop iv fluids and Lasix now, as per recommendation of the Oncologist Follow BMP daily (4) Hypokalemia K is 3 today. Suspect this is from poor oral intake before admission plus Lasix recently started Plan: Replace with K riders and po Cont to hold her home dose of HydroDIURIL Follow BMP daily (5) Borderline DM II She used to be on Metformin. Then she lost 30-40 lbs and no longer takes DM meds, just a DM diet Her A1c came back at 6.3 On 08/10 her glu was 70 in a.m. and she was symptomatic, got juice and glu >>160 Plan: I stopped DM diet and ordered a Reg diet, stopped fingerstick checks and SS Insulin, she has needed no Insulin coverage since adm (6) Hx of HTN BP stable and she has not been started on her home meds (7) Psoriasis She was on weekly methotrexate for alopecia, had possible Fibromyalgia and p robbale psoriasis Plan: Cont weekly MTX while here (8) Fall at home I suspect this was from electrolyte abnormalities, possibly from orthostasis, and from weakness due to not taking her thyroid med for 1 month. She has had normal orthostatic vital signs here Plan: PT and OT to keep working with her Hold her home dose of HydroDIURIL (9) Generalized weakness The patient and her requested that I speak to the patient's ogbbfr-oi-zau who is an Ophthalmology doctor in [place]. I spoke to Dr. Jacqueline Nicolas yesterday and today. She gave me more details about the patient's history I learned that the patient started to get weakness about 3 weeks ago. She did not want to seek medical care because she did not want to "be a burden". Appro ximately 3 days before admission she rapidly declined and was too weak to get out of bed, then fell at home, appetite was poor, she has been more drowsy. Dr Nicolas did not know that the pt had stopped taking her Synthroid 1 month ago (as per reconciled med list). Also, Dr Nicolas was not aware of all the meds she was on. Plan: Work-up underway as above (10) Hypothyroidism When reconciling her med list, our pharmacy learned that she was not taking her thyroid replacement for 1 month, reason unknown Plan: I resumed her usual thyroid dose (11) Hyponatremia RESOLVED She appeared to have hypovolemic hyponatremia consistent with volume depletion. This is not pseudohyponatremia due to excessively high glu She is today 7 L positive in fluid status, after getting NS IV fluids All labs were reviewed: Na 126 >> sodium 137 today, after aggressive IV crystalloid infusion Plan: Cont iv NS Follow serum sodium daily (12) Leukocytosis RESOLVED WBC 15>> 14>> 11 today without antibx Possibly Reactive She is still currently afebrile Plan: Monitor closely and trend labs - Current Meds Current Meds: Current Medications Generic Name Dose Route Start Last Admin Trade Name Freq PRN Reason Stop Dose Admin Acetaminophen 650 mg 08/07/23 21:33 08/08/23 00:43 Acetaminophen 325 Mg Tablet PO 650 mg Q4HR PRN Administration Pain 1 to 4, or Fever Aspirin 81 mg 08/10/23 21:00 08/11/23 08:49 Aspirin Ec 81 Mg Tablet PO 81 mg BID BRAN Administration Folic Acid 1 mg 08/10/23 12:00 08/11/23 12:18 Folic Acid 1 Mg Tablet PO 1 mg [id number] BRAN Administration Heparin Sodium (Porcine) 5,000 unit 08/08/23 09:00 08/11/23 08:53 Heparin 5,000 Unit/Ml Vial SUBQ 5,000 unit BID BRAN Administration Levothyroxine Sodium 112 mcg 08/10/23 08:26 08/11/23 06:22 Levothyroxine 112 Mcg Tablet PO 112 mcg QDAC BRAN Administration Loratadine 10 mg 08/10/23 21:00 08/10/23 21:30 Loratadine 10 Mg Tablet PO 10 mg QPM BRAN Administration Potassium Chloride 20 meq 08/10/23 09:00 08/11/23 08:49 Potassium Chloride 10 Meq Capsule PO 20 meq DAILYWM BRAN Administration Sodium Chloride 10 ml 08/07/23 21:33 08/11/23 13:22 Sodium Chloride Flush 0.9% 10 Ml Syringe IVP 10 ml PRN PRN Administration NEEDED PER PROVIDER ORDERS Sodium Chloride 10 ml 08/08/23 01:00 08/11/23 08:50 Sodium Chloride Flush 0.9% 10 Ml Syringe IVP 10 ml 0100,0900,1700 BRAN Administration Sodium Chloride 2 sprays 08/10/23 11:07 08/11/23 09:03 Sodium Chloride 0.65% Nasal [place] SAMANTA 1 applic Q4HR PRN Administration Nasal Congestion Solifenacin 5 mg 08/10/23 21:00 08/10/23 21:29 Solifenacin Succinate 5 Mg Tablet PO 5 mg QPM BRAN Administration Topiramate 50 mg 08/10/23 21:00 08/11/23 10:41 Topiramate 25 Mg Tablet PO 50 mg BID BRAN Administration - Lab Result Fish Bone Diagrams: 08/11/23 04:50 08/11/23 04:50 - Additional Planning My Orders: My Active Orders 08/10/23 21:00 Aspirin EC [Ecotrin] 81 mg PO BID Loratadine [Claritin] 10 mg PO QPM Solifenacin Succinate [Vesicare] 5 mg PO QPM Topiramate [Topamax] 50 mg PO BID 08/11/23 09:22 Telemetry-Discontinue [RC] .ONCE 08/12/23 05:00 BMP - BASIC METABOLIC PANEL [CHEM] DAILYLAB CALCIUM [CHEM] DAILYLAB 08/13/23 05:00 BMP - BASIC METABOLIC PANEL [CHEM] DAILYLAB CALCIUM [CHEM] DAILYLAB 08/14/23 05:00 BMP - BASIC METABOLIC PANEL [CHEM] DAILYLAB CALCIUM [CHEM] DAILYLAB 08/14/23 09:00 Methotrexate [Methotrexate Sodium] 15 mg PO We Subjective - Subjective Patient Reports: Feeling Better, No Complaints Objective Vital Signs: Vital Signs - 24 hr 08/10/23 08/10/23 08/11/23 20:21 23:00 04:10 Temperature 36.6 C 36.6 C 36.4 C L Heart Rate [ 78 90 80 Brachial] Respiratory 18 16 16 Rate Blood Pressure 136/65 H 131/53 H 141/63 H [Left Brachial artery] O2 Saturation 100 100 99 08/11/23 07:51 Temperature 36.7 C Heart Rate [ 74 Brachial] Respiratory 18 Rate Blood Pressure 140/69 H [Left Brachial artery] O2 Saturation 100 Oxygen O2 Source Room air I&O (Last 24 Hrs): Intake and Output Totals x24h 08/09/23 08/10/23 08/11/23 23:59 23:59 23:59 Intake Total 3343.829 4450.00 2481.25 Output Total 1450 4400 Balance 3343.829 3000.00 -1918.75 General: Alert, Oriented x3 HEENT: Mucous membr. moist/pink, Other (Alopecia) Neck: Supple, No JVD Neuro: Alert, Non Focal Cardiovascular: Regular rate, No murmurs Respiratory: No respiratory distress, Breath sounds nml Abdomen: Normal bowel sounds, Soft, No tenderness, Other (Obese) Extremities: No clubbing, Other (Tracepretibial edema R>L) - Results Results: Laboratory Results WBC 10.4 x10^3/uL (4.8-10.8) 08/11/23 04:50 RBC 3.31 10^6/uL (4.20-5.40) L 08/11/23 04:50 Hgb 10.6 g/dL (12.0-16.0) L 08/11/23 04:50 Hct 31.8 % (37.0-47.0) L 08/11/23 04:50 MCV 96.1 fL (81.0-99.0) 08/11/23 04:50 MCH 32.0 pg (27.0-31.0) H 08/11/23 04:50 MCHC 33.3 g/dL (32.0-36.0) 08/11/23 04:50 RDW 14.6 % (12.0-15.0) 08/11/23 04:50 Plt Count 372 10^3/uL (130-450) 08/11/23 04:50 MPV 8.5 fL (7.9-10.8) 08/11/23 04:50 Neut # (Auto) 7.8 10^3/uL (1.5-6.6) H 08/09/23 04:45 Lymph # (Auto) 2.5 10^3/uL (1.5-3.5) 08/09/23 04:45 [place] # (Auto) 1.1 10^3/uL (0.0-1.0) H 08/09/23 04:45 Eos # (Auto) 0.2 10^3/uL (0.0-0.7) 08/09/23 04:45 Baso # (Auto) 0.1 10^3/uL (0.0-0.1) 08/09/23 04:45 Absolute Nucleated RBC 0.00 x10^3/uL 08/09/23 04:45 Total Counted 100 08/07/23 18:14 Band Neuts % (Manual) 0 % (0-10) 08/07/23 18:14 Abnorm Lymph % (Manual) 0 % 08/07/23 18:14 Nucleated RBC % 0.0 /100WBC 08/09/23 04:45 Neutrophils # (Manual) 10.3 10^3/uL (1.5-6.6) H 08/07/23 18:14 Lymphocytes # (Manual) 2.8 10^3/uL (1.5-3.5) 08/07/23 18:14 Monocytes # (Manual) 2.3 10^3/uL (0.0-1.0) H 08/07/23 18:14 Eosinophils # (Manual) 0.0 10^3/uL (0-0.7) 08/07/23 18:14 Basophils # (Manual) 0.0 10^3/uL (0-0.1) 08/07/23 18:14 Differential Comment MANUAL DIFFERENTIAL 08/07/23 18:14 Platelet Estimate INCREASED (>450,000) (NORMAL) 08/07/23 18:14 Platelet Morphology NORMAL APPEARANCE (NORMAL) 08/07/23 18:14 RBC Morph Micro Appear NORMAL APPEARANCE (NORMAL) 08/07/23 18:14 VBG pH 7.401 (7.31-7.41) 08/08/23 05:15 Ionized Calcium 1.82 mmol/L (1.15-1.33) H* 08/08/23 05:15 Sodium 139 mmol/L (135-145) 08/11/23 04:50 Potassium 3.1 mmol/L (3.5-4.5) L 08/11/23 04:50 Chloride 110 mmol/L (101-111) 08/11/23 04:50 Carbon Dioxide 22 mmol/L (21-32) 08/11/23 04:50 Anion Gap 7.0 (6-13) 08/11/23 04:50 BUN 25 mg/dL (6-20) H 08/11/23 04:50 Creatinine 1.6 mg/dL (0.6-1.3) H 08/11/23 04:50 Estimated GFR (MDRD) 32 (>89) L 08/11/23 04:50 Glucose 93 mg/dL (74-104) 08/11/23 04:50 POC Whole Bld Glucose 87 mg/dL (70 - 100) 08/11/23 07:46 Estimat Average Glucose 134 mg/dL (70-100) H 08/08/23 05:15 Hemoglobin A1c % 6.3 % (4.27-6.07) H 08/08/23 05:15 Calcium 10.0 mg/dL (8.5-10.3) 08/11/23 04:50 Phosphorus 2.3 mg/dL (2.5-5.0) L 08/10/23 05:45 Magnesium 1.9 mg/dL (1.7-2.3) 08/09/23 04:45 Total Bilirubin 0.3 mg/dL (0.2-1.0) 08/11/23 04:50 Direct Bilirubin < 0.10 mg/dL (0.03-0.18) 08/11/23 04:50 AST 19 IU/L (10-42) 08/11/23 04:50 ALT 21 IU/L (10-60) 08/11/23 04:50 Alkaline Phosphatase 70 IU/L (42-121) 08/11/23 04:50 Total Protein 6.0 g/dL (6.4-8.9) L 08/11/23 04:50 Albumin 3.2 g/dL (3.2-5.5) 08/11/23 04:50 Globulin 2.8 g/dL (2.1-4.2) 08/11/23 04:50 Albumin/Globulin Ratio 1.3 (1.0-2.2) 08/08/23 05:15 Vitamin D 25-Hydroxy 62.2 ng/mL (30.0-100.0) 08/07/23 20:11 TSH 5.92 uIU/mL (0.34-5.60) H 08/08/23 05:15 Total Intact PTH 6 pg/mL (12-88) L 08/07/23 18:44 Urine Color YELLOW 08/07/23 22:15 Urine Clarity CLEAR (CLEAR) 08/07/23 22:15 Urine pH 5.5 PH (5.0-7.5) 08/07/23 22:15 Ur Specific [place] 1.010 (1.002-1.030) 08/07/23 22:15 Urine Protein NEGATIVE mg/dL (NEGATIVE) 08/07/23 22:15 Urine Glucose (UA) NEGATIVE mg/dL (NEGATIVE) 08/07/23 22:15 Urine Ketones NEGATIVE mg/dL (NEGATIVE) 08/07/23 22:15 Urine Occult Blood NEGATIVE (NEGATIVE) 08/07/23 22:15 Urine Nitrite NEGATIVE (NEGATIVE) 08/07/23 22:15 Urine Bilirubin NEGATIVE (NEGATIVE) 08/07/23 22:15 Urine Urobilinogen 0.2 (NORMAL) E.U./dL (NORMAL) 08/07/23 22:15 Ur Leukocyte Esterase TRACE (NEGATIVE) H 08/07/23 22:15 Urine RBC 0-5 /HPF (0-5) 08/07/23 22:15 Urine WBC 6-10 /HPF (0-5) H 08/07/23 22:15 Ur Squamous Epith Cells MOD Squamous (<= Few) H 08/07/23 22:15 Urine Bacteria Few /HPF (None Seen) 08/07/23 22:15 Urine Casts 3-5 Hyaline Casts /LPF 08/07/23 22:15 Ur Microscopic Review INDICATED 08/07/23 22:15 Urine Culture Comments NOT INDICATED 08/07/23 22:15 - Procedures Procedures: Procedures COLONOSCOPY (08/26/14)
--- NOTE | 2023-08-11 19:42 | Ultrasound Report ---
PROCEDURE: Head or Neck Soft Tissue INDICATIONS: Mass near thyroid gland TECHNIQUE: Real-time scanning was performed of the neck soft tissue, with image documentation. COMPARISON: None FINDINGS: Focused ultrasound examination of left lower neck soft tissue just inferior to the left thyroid lobe shows mixed echogenicity structure inferior to the left thyroid lobe with echogenic component measure s 9 x 5 x 5 mm in size and contains mild internal vascularity. The Hypoechoic component measures 9 x 6 x 5 mm in size and show no internal vascularity. Overall size of the lesion measures 1.4 x 0.8 x 1 cm in size. No neck soft tissue lymphadenopathy is seen. IMPRESSION: Mixed density structure in left neck soft tissue inferior to left thyroid lobe which may represent parathyroid gland versus complex mass. Clinical correlation and follow-up is recommended. ACR TI-RADS definitions and recommendations: TI-RADS 1 (benign): 0 points. FNA not needed. TI-RADS 2 (not suspicious): 2 points. FNA not needed. TI-RADS 3 (mildly suspicious): 3 points. "FNA if 2.5 cm or larger, follow up if 1.5 cm or larger (at 1, 3, and 5 years). TI-RADS 4 (moderately suspicious): 4-6 points. "FNA if 1.5 cm or larger, follow up if 1 cm or larger (at 1, 2, 3, and 5 years). TI-RADS 5 (highly suspicious): 7 points or more. "FNA if 1 cm or larger, follow up if 0.5 cm or larger (every year for 5 years). Reviewed by: Dinesh Tim MD on 08/11/2023 7:41 PM PDT Approved by: Dinesh Tim MD on 08/11/2023 7:41 PM PDT Station ID: [id number]
[2023-08-11] MEDS: SOLIFENACIN SUCCINATE 5 MG TABLET PO SCH (22:00)
[2023-08-11] MEDS: LORATADINE 10 MG TABLET PO SCH (22:00)
[2023-08-12] MEDS: SODIUM CHLORIDE FLUSH 0.9% 10 ML SYRINGE IVP SCH ×3 (00:10→21:16)
[2023-08-12 05:29] LABS: CALCIUM 10.2 mg/dL (8.5-10.3); CREATININE 1.7 mg/dL (0.6-1.3); POTASSIUM 3.4 mmol/L (3.5-4.5)
[2023-08-12] MEDS: LEVOTHYROXINE 112 MCG TABLET PO SCH (06:49)
[2023-08-12] MEDS ORDERED: FUROSEMIDE 40 MG/4 ML VIAL IVP SCH (08:00)
[2023-08-12] MEDS: POTASSIUM CHLORIDE 10 MEQ CAPSULE PO SCH (08:36)
[2023-08-12] MEDS: ASPIRIN EC 81 MG TABLET PO SCH ×2 (08:36→21:15)
[2023-08-12] MEDS: TOPIRAMATE 25 MG TABLET PO SCH ×2 (08:36→21:15)
[2023-08-12] MEDS: HEPARIN 5,000 UNIT/ML VIAL SUBQ SCH ×2 (08:47→21:15)
--- NOTE | 2023-08-12 11:47 | PROVIDER PROGRESS NOTE ---
Assessment/Plan - Problem List (1) Hypercalcemia Assessment/Plan: Her Ca was 16 at admission, and other labs showed a low PTH, normal vit D. She has been getting IV NS. Then IV Lasix BID weas added.When her creat improved, she got Zolendronic Acid iv x1 yesterday 08/11 Yesterday 08/11, I spoke to Dr. Birmingham, the oncologist at [facility]. He advised that we stop the saline hydration, IV Lasix and see what her calcium does on its own, now that she received Zoledronic acid yesterday All labs were reviewed. Today her Ca kimber from 10 yesterday to 10.2 today Plan: Remain off IV NS and off IV Lasix doses. Encourage oral hydration, but not just with water. Her diet has a Ca restriction. Continue to monitor her serum Calcium off the hydration as he recommended, and he said if her Ca remains good, she could potentially be discharged on 08/13. Then she needs Ca blood test in 1 week and further oncology management with him within the month. The patient just lost her PCP (because she was discharged from being seen at the [facility] when she turned 63, which was just a few days ago), therefore a new PCP has been arranged for her by her [id number] who is a doctor. The patient will be seeing Dr. Garcia in [place]. Dr. Birmingham has offerred to be her Oncologist, and gave his cell phone [phone] (She will be seen at [facility] in [place] by him for the first visit but then after that she will have visits with him in [place]) (2) Thyroid mass of unclear etiology Assessment/Plan: The patient underwent CT with contrast of her head, neck, chest, abdomen and pelvis yesterday. The significant findings were a mass in her neck near the thyroid gland and a splenic mass. When I spoke to Dr. Birmingham, he advised that she undergo a thyroid ultrasound scan to see if the mass needs a biopsy. She did have the neck ultrasound done last night and this does show a "complex mass". He advised that the patient undergo a bone marrow biopsy while here. She needs follow-up of her calcium level and her cancer work-up. Plan: I have ordered a neck mass biopsy under ultrasound guidance to be done here by IR. I spoke to the Radiologist here today and Dr Temple said we do not have the capability to do a bone marrow biopsy here (since the CT scanner is a portable unit currently, through September) Awaiting SPEP and light chain results and she just finished collecting a 24-hour urine for urine PEP I went over all these recommendations and the plan with pt, and [id number] Dr Jacqueline Nicolas ([employer] Operator in [place]) was on the phone ([phone]) (3) FANY (acute kidney injury) All labs were reviewed. The BUN/creatinine were improving after iv saline was infusing. The IV NS hydration has made her about 7L (+) in fluid balance. Saline and IV Lasix were stopped yesterday. Today her creat increased slightly from 1.6 to 1.7 Her retroperitoneal ultrasound had no signif findings Plan: Continue to avoid nephrotoxins Encourage oral hydration Follow BMP daily If her creatinine continues to rise tomorrow, off of IV NS 2 days, then she cannot be discharged (4) Hypokalemia K is 3 today. Suspect this is from poor oral intake before admission plus Lasix recently started Plan: Replace with K riders and po Cont to hold her home dose of HydroDIURIL Follow BMP daily (5) Hyponatremia At admission Na was 126. She appeared to have hypovolemic hyponatremia consistent with volume depletion. This was not pseudohyponatremia from a excessively high glu level. She is today 7 L positive in fluid status, after getting NS IV fluids All labs were reviewed: Na 126 >> sodium 137 >> 136 today. and she revealed she dribks alot of water Plan: I will addd a free water restriction to her diet. Nutrition consult ordered and I spoke to Kathie Follow serum sodium daily (6) Borderline DM II She used to be on Metformin. Then she lost 30-40 lbs and no longer takes DM meds, just a DM diet Her A1c came back at 6.3 On 08/10 her glu was 70 in a.m. and she was symptomatic, got juice and glu >>160 Plan: I stopped DM diet and ordered a Reg diet, stopped fingerstick checks and SS Insulin, she has needed no Insulin coverage since adm (7) Psoriasis She was on weekly methotrexate for alopecia, had possible Fibromyalgia and probbale psoriasis Plan: Cont weekly MTX weekly, unless advised to stopby Oncologist (8) Hx of HTN BP stable and she has not been started on her home meds (8) Fall at home I suspect this was from electrolyte abnormalities, possibly from orthostasis, and from weakness due to not taking her thyroid med for 1 month. She has had normal orthostatic vital signs here Plan: PT and OT to keep working with her Hold her home dose of HydroDIURIL (9) Generalized weakness The patient and her requested that I speak to the patient's [id number] who is an Ophthalmology doctor in [place]. I have spoken to Dr. Jacqueline Nicolas daily by phone. I learned that the patient started to get weakness about 3 weeks ago. She did not want to seek medical care because she did not want to "be a burden". Approximately 3 days before admission she rapidly declined and was too weak to get out of bed, then fell at home, appetite was poor, she has been more drowsy. Dr Nicolas did not know that the pt had stopped taking her Synthroid 1 month ago (as per reconciled med list). Also, Dr Nicolas was not aware of all the meds she was on. Plan: Work-up underway as above (10) Hypothyroidism When reconciling her med list, our pharmacy learned that she was not taking her thyroid replacement for 1 month, reason unknown Plan: I resumed her usual thyroid dose - Current Meds Current Meds: Current Medications Generic Name Dose Route Start Last Admin Trade Name Freq PRN Reason Stop Dose Admin Acetaminophen 650 mg 08/07/23 21:33 08/08/23 00:43 Acetaminophen 325 Mg Tablet PO 650 mg Q4HR PRN Administration Pain 1 to 4, or Fever Aspirin 81 mg 08/10/23 21:00 08/12/23 08:36 Aspirin Ec 81 Mg Tablet PO 81 mg BID BRAN Administration Folic Acid 1 mg 08/10/23 12:00 08/11/23 12:18 Folic Acid 1 Mg Tablet PO 1 mg [id number] BRAN Administration Heparin Sodium (Porcine) 5,000 unit 08/08/23 09:00 08/12/23 08:47 Heparin 5,000 Unit/Ml Vial SUBQ 5,000 unit BID BRAN Administration Levothyroxine Sodium 112 mcg 08/10/23 08:26 08/12/23 06:49 Levothyroxine 112 Mcg Tablet PO 112 mcg QDAC BRAN Administration Loratadine 10 mg 10/21/23 21:00 08/11/23 22:00 Loratadine 10 Mg Tablet PO 10 mg QPM BRAN Administration Potassium Chloride 20 meq 08/10/23 09:00 08/12/23 08:36 Potassium Chloride 10 Meq Capsule PO 20 meq DAILYWM BRAN Administration Sodium Chloride 10 ml 08/07/23 21:33 08/11/23 13:22 Sodium Chloride Flush 0.9% 10 Ml Syringe IVP 10 ml PRN PRN Administration NEEDED PER PROVIDER ORDERS Sodium Chloride 10 ml 08/08/23 01:00 08/12/23 08:37 Sodium Chloride Flush 0.9% 10 Ml Syringe IVP 10 ml 0100,0900,1700 BRAN Administration Sodium Chloride 2 sprays 08/10/23 11:07 08/11/23 09:03 Sodium Chloride 0.65% Nasal [place] SAMANTA 1 applic Q4HR PRN Administration Nasal Congestion Solifenacin 5 mg 08/10/23 21:00 08/11/23 22:00 Solifenacin Succinate 5 Mg Tablet PO 5 mg QPM BRAN Administration Topiramate 50 mg 08/10/23 21:00 08/12/23 08:36 Topiramate 25 Mg Tablet PO 50 mg BID BRAN Administration - Lab Result Fish Bone Diagrams: 08/11/23 04:50 08/12/23 05:02 - Diagnostic Imaging Results Diagnostic Imaging Results: Final report reviewed - Additional Planning My Orders: My Active Orders 08/12/23 11:29 Aspir/Inj Thyroid Cyst [US] Stat 08/13/23 05:00 BMP - BASIC METABOLIC PANEL [CHEM] DAILYLAB BMP - BASIC METABOLIC PANEL [CHEM] DAILYLAB CALCIUM [CHEM] DAILYLAB CALCIUM [CHEM] DAILYLAB MAGNESIUM [CHEM] DAILYLAB PHOSPHORUS [CHEM] DAILYLAB 08/14/23 05:00 BMP - BASIC METABOLIC PANEL [CHEM] DAILYLAB BMP - BASIC METABOLIC PANEL [CHEM] DAILYLAB CALCIUM [CHEM] DAILYLAB CALCIUM [CHEM] DAILYLAB MAGNESIUM [CHEM] DAILYLAB PHOSPHORUS [CHEM] DAILYLAB 08/14/23 09:00 Methotrexate [Methotrexate Sodium] 15 mg PO We Subjective - Subjective Patient Reports: Resting Comfortably, No Complaints Objective Vital Signs: Vital Signs - 24 hr 08/12/23 08:58 Temperature 36.8 C Heart Rate [ 79 Brachial] Respiratory 20 Rate Blood Pressure 128/62 [Left Brachial artery] O2 Saturation 100 Oxygen O2 Source Room air I&O (Last 24 Hrs): Intake and Output Totals x24h 08/10/23 08/11/23 08/12/23 23:59 23:59 23:59 Intake Total 4450.00 3994.00 800 Output Total 1450 4400 Balance 3000.00 -406.00 800 General: Alert, Oriented x3, No acute distress HEENT: EOMI, Mucous membr. moist/pink, Other (Alopecia) Neck: Supple, No JVD Neuro: Alert, Non Focal Cardiovascular: Regular rate Respiratory: No respiratory distress Abdomen: Soft, No tenderness, Other (Obese) Extremities: No clubbing, Other (Trace prtibial edema) - Results Results: Laboratory Results WBC 10.4 x10^3/uL (4.8-10.8) 08/11/23 04:50 RBC 3.31 10^6/uL (4.20-5.40) L 08/11/23 04:50 Hgb 10.6 g/dL (12.0-16.0) L 08/11/23 04:50 Hct 31.8 % (37.0-47.0) L 08/11/23 04:50 MCV 96.1 fL (81.0-99.0) 08/11/23 04:50 MCH 32.0 pg (27.0-31.0) H 08/11/23 04:50 MCHC 33.3 g/dL (32.0-36.0) 08/11/23 04:50 RDW 14.6 % (12.0-15.0) 08/11/23 04:50 Plt Count 372 10^3/uL (130-450) 08/11/23 04:50 MPV 8.5 fL (7.9-10.8) 08/11/23 04:50 Neut # (Auto) 7.8 10^3/uL (1.5-6.6) H 08/09/23 04:45 Lymph # (Auto) 2.5 10^3/uL (1.5-3.5) 08/09/23 04:45 [place] # (Auto) 1.1 10^3/uL (0.0-1.0) H 08/09/23 04:45 Eos # (Auto) 0.2 10^3/uL (0.0-0.7) 08/09/23 04:45 Baso # (Auto) 0.1 10^3/uL (0.0-0.1) 08/09/23 04:45 Absolute Nucleated RBC 0.00 x10^3/uL 08/09/23 04:45 Total Counted 100 08/07/23 18:14 Band Neuts % (Manual) 0 % (0-10) 08/07/23 18:14 Abnorm Lymph % (Manual) 0 % 08/07/23 18:14 Nucleated RBC % 0.0 /100WBC 08/09/23 04:45 Neutrophils # (Manual) 10.3 10^3/uL (1.5-6.6) H 08/07/23 18:14 Lymphocytes # (Manual) 2.8 10^3/uL (1.5-3.5) 08/07/23 18:14 Monocytes # (Manual) 2.3 10^3/uL (0.0-1.0) H 08/07/23 18:14 Eosinophils # (Manual) 0.0 10^3/uL (0-0.7) 08/07/23 18:14 Basophils # (Manual) 0.0 10^3/uL (0-0.1) 08/07/23 18:14 Differential Comment MANUAL DIFFERENTIAL 08/07/23 18:14 Platelet Estimate INCREASED (>450,000) (NORMAL) 08/07/23 18:14 Platelet Morphology NORMAL APPEARANCE (NORMAL) 08/07/23 18:14 RBC Morph Micro Appear NORMAL APPEARANCE (NORMAL) 08/07/23 18:14 VBG pH 7.401 (7.31-7.41) 08/08/23 05:15 Ionized Calcium 1.82 mmol/L (1.15-1.33) H* 08/08/23 05:15 Sodium 138 mmol/L (135-145) 08/12/23 05:02 Potassium 3.4 mmol/L (3.5-4.5) L 08/12/23 05:02 Chloride 108 mmol/L (101-111) 08/12/23 05:02 Carbon Dioxide 21 mmol/L (21-32) 08/12/23 05:02 Anion Gap 9.0 (6-13) 08/12/23 05:02 BUN 25 mg/dL (6-20) H 08/12/23 05:02 Creatinine 1.7 mg/dL (0.6-1.3) H 08/12/23 05:02 Estimated GFR (MDRD) 30 (>89) L 08/12/23 05:02 Glucose 97 mg/dL (74-104) 08/12/23 05:02 POC Whole Bld Glucose 87 mg/dL (70 - 100) 08/11/23 07:46 Estimat Average Glucose 134 mg/dL (70-100) H 08/08/23 05:15 Hemoglobin A1c % 6.3 % (4.27-6.07) H 08/08/23 05:15 Calcium 10.2 mg/dL (8.5-10.3) 08/12/23 05:02 Phosphorus 2.3 mg/dL (2.5-5.0) L 08/10/23 05:45 Magnesium 1.9 mg/dL (1.7-2.3) 08/09/23 04:45 Total Bilirubin 0.3 mg/dL (0.2-1.0) 08/11/23 04:50 Direct Bilirubin < 0.10 mg/dL (0.03-0.18) 08/11/23 04:50 AST 19 IU/L (10-42) 08/11/23 04:50 ALT 21 IU/L (10-60) 08/11/23 04:50 Alkaline Phosphatase 70 IU/L (42-121) 08/11/23 04:50 Total Protein 6.0 g/dL (6.4-8.9) L 08/11/23 04:50 Albumin 3.2 g/dL (3.2-5.5) 08/11/23 04:50 Globulin 2.8 g/dL (2.1-4.2) 08/11/23 04:50 Albumin/Globulin Ratio 1.3 (1.0-2.2) 08/08/23 05:15 Vitamin D 25-Hydroxy 62.2 ng/mL (30.0-100.0) 08/07/23 20:11 TSH 5.92 uIU/mL (0.34-5.60) H 08/08/23 05:15 Total Intact PTH 6 pg/mL (12-88) L 08/07/23 18:44 Urine Color YELLOW 08/07/23 22:15 Urine Clarity CLEAR (CLEAR) 08/07/23 22:15 Urine pH 5.5 PH (5.0-7.5) 08/07/23 22:15 Ur Specific [place] 1.010 (1.002-1.030) 08/07/23 22:15 Urine Protein NEGATIVE mg/dL (NEGATIVE) 08/07/23 22:15 Urine Glucose (UA) NEGATIVE mg/dL (NEGATIVE) 08/07/23 22:15 Urine Ketones NEGATIVE mg/dL (NEGATIVE) 08/07/23 22:15 Urine Occult Blood NEGATIVE (NEGATIVE) 08/07/23 22:15 Urine Nitrite NEGATIVE (NEGATIVE) 08/07/23 22:15 Urine Bilirubin NEGATIVE (NEGATIVE) 08/07/23 22:15 Urine Urobilinogen 0.2 (NORMAL) E.U./dL (NORMAL) 08/07/23 22:15 Ur Leukocyte Esterase TRACE (NEGATIVE) H 08/07/23 22:15 Urine RBC 0-5 /HPF (0-5) 08/07/23 22:15 Urine WBC 6-10 /HPF (0-5) H 08/07/23 22:15 Ur Squamous Epith Cells MOD Squamous (<= Few) H 08/07/23 22:15 Urine Bacteria Few /HPF (None Seen) 08/07/23 22:15 Urine Casts 3-5 Hyaline Casts /LPF 08/07/23 22:15 Ur Microscopic Review INDICATED 08/07/23 22:15 Urine Culture Comments NOT INDICATED 08/07/23 22:15 - Procedures Procedures: Procedures COLONOSCOPY (08/26/14)
[2023-08-12] MEDS: FOLIC ACID 1 MG TABLET PO SCH (11:54)
[2023-08-12] MEDS: LORATADINE 10 MG TABLET PO SCH (21:15)
[2023-08-12] MEDS: SOLIFENACIN SUCCINATE 5 MG TABLET PO SCH (21:15)
[2023-08-12] MEDS: ACETAMINOPHEN 325 MG TABLET PO PRN (21:36)
[2023-08-13] MEDS: SODIUM CHLORIDE 0.65% NASAL SPRAY NAS PRN (00:15)
[2023-08-13] MEDS: SODIUM CHLORIDE FLUSH 0.9% 10 ML SYRINGE IVP SCH ×2 (00:31→08:17)
[2023-08-13 05:50] LABS: CREATININE 1.3 mg/dL (0.6-1.3); MAGNESIUM 1.5 mg/dL (1.7-2.3); PHOSPHORUS 3.6 mg/dL (2.5-5.0); POTASSIUM 3.7 mmol/L (3.5-4.5)
[2023-08-13] MEDS: LEVOTHYROXINE 112 MCG TABLET PO SCH (06:35)
[2023-08-13] MEDS: POTASSIUM CHLORIDE 10 MEQ CAPSULE PO SCH (08:16)
[2023-08-13] MEDS: HEPARIN 5,000 UNIT/ML VIAL SUBQ SCH (08:17)
[2023-08-13] MEDS: ASPIRIN EC 81 MG TABLET PO SCH (08:17)
[2023-08-13] MEDS: TOPIRAMATE 25 MG TABLET PO SCH (08:17)
[2023-08-13 10:00] VITALS: BP 128/60; O2SAT 100
[2023-08-13] MEDS ORDERED: MAGNESIUM OXIDE 400 MG TABLET PO SCH (11:00)
--- NOTE | 2023-08-13 11:54 | Ultrasound Report ---
PROCEDURE: Head or Neck Soft Tissue INDICATIONS: Biopsy of mass in neck near her thyroid gland TECHNIQUE: Real-time scanning was performed of the thyroid gland, with image documentation. COMPARISON: None FINDINGS: There is a hypoechoic 0.9 x 0.6 x 0.8 cm lesion within the left neck at the base of the le ft thyroid lobe which likely corresponds with the finding on CT. This demonstrates posterior acoustic enhancement suggesting a cystic structure. This structure is surrounded by vessels and is deep to th e left clavicle. IMPRESSION: Subcentimeter hypoechoic mass inferior to the left thyroid lobe which may represent a sm all cyst. This lesion is not amenable to biopsy given deep location and overlying vascular structures . Reviewed by: Maggie Marroquin MD on 08/13/2023 11:53 AM PDT Approved by: Maggie Marroquin MD on 08/13/2023 11:53 AM PDT Station ID: [id number]
[2023-08-13 12:09] LABS: ALBUMIN 2.9 g/dL (2.9-4.4); ALPHA-1-GLOBULIN 0.2 g/dL (0.0-0.4); ALPHA-2-GLOBULIN 0.9 g/dL (0.4-1.0); BETA GLOBULIN 0.8 g/dL (0.7-1.3); GLOBULIN, TOTAL 2.9 g/dL (2.2-3.9); PROTEIN TOTAL 5.8 g/dL (6.0-8.5)
[2023-08-13] MEDS: FOLIC ACID 1 MG TABLET PO SCH (12:28)
--- NOTE | 2023-08-13 14:29 | Discharge Plan ---
Discharge Plan Problem Reviewed?: Yes Disposition: Home, Self Care Condition: Stable Prescriptions: Magnesium Oxide [Mag Ox] 400 mg PO DAILYWM 14 Days #14 tab Diet: Regular Activity Restrictions: Activity as Tolerated Shower Restrictions: No Driving Restrictions: No Weight Bearing: Full Weight Instruction Topics: Hypercalcemia Dc Health Concerns: Hypercalcemia Acute kidney failure Hypo-osemolality hyponatremia Plan of Treatment: Ultrasound performed 08/13/2023 showed subcentimeter hypoechoic mass inferior to the left thyroid lobe which may represent a small cyst. This lesion is not amendable to biopsy given deep location and overlying vascular structures. On 08/13/2023, patient sodium 140, potassium 3.7, chloride 110, bicarb 21. BUN 21, creatinine 1.3, calcium 10.0, magnesium 1.5. Patient was given 2 g of magnesium before discharge. Per Oncologist Dr. Noble, (office number [phone]), no indication for fluid restriction at this point (your sodium is normalized), patient can drink fluid (can go upto 2L), follow up with him within one week. (his office will call patient). Assessment: Stable Improved No Smoking: If you smoke, Please STOP! Call for help. Follow-up with: AMBER CASAS DO [Primary Care Provider] - CANDIS NOBLE MD [Physician No Access] -
--- NOTE | 2023-08-13 14:43 | DISCHARGE SUMMARY ---
"Discharge Summary Admit Date: 08/07/23 Discharge Date: 08/13/23 Primary Care Provider: Shayna Garcia Code Status: Attempt Resuscitation Condition at Discharge: Stable Discharge Disposition: 01 Home, Self Care - DIAGNOSES Admission Diagnoses: Hypercalcemia FANY Leukocytosis Thrombocytosis Discharge Diagnoses with Status of Each Condition: Hypocalcemia, Improved and stable Thyroid mass of unclear etiology FANY, resolved Hypokalemia, resolved Hyponatremia, resolved - HPI History of Present Illness: A 63 years old female with history of psoriasis methotrexate weekly, DM 2 diet controlled, hypertension, migraine headache Presented to the ER with complaints of bowel weakness, ground-level fall. Patient reports she felt weak, her legs gave out and she hit the back of her head on the floor, she diarrhea or constipation 8 1 would say similar to loss of consciousness. Patient has been feeling nauseated and vomited for the past week before admission. His gait has been progressively unstable over the past month, she had a hard time getting up stairs required assistance from her . She feels sore achy in her leg, denies hematuria dysuria or any change in urination pattern. Labs done at dermatology office the day before admission shows WBC 16.6, platelet 543, BUN 29, creatinine 2.23 comparing to baseline 0.9 last month showed sign of FANY. She - CONSULTS | PROCEDURES Consultations: Dr. Birmingham, Oncologist at [facility] COURSE Hospital Course: Patient was found hypercalcemia with calcium level 16 at admission, low PTH normal vitamin D level. Patient was given IV normal saline then IV Lasix twice daily was added while her creatinine level improved. She also received zoledronic acid IV once 08/11. Patient calcium improved to 10 after treatment. After consultation with Dr. Birmingham, Lasix and IV fluids was discontinued, calcium continue to be stable, and creatinine level is 1.2 stable as the past few days. Patient had CT scan with contrast to check her head neck chest abdomen and pelvis, to look for any potential tumors which can be reason for hypercalcemia. The significant findings were a mass in her neck near the thyroid gland and a splenic mass. Ultrasound guided neck mass biopsy was ordered, however due to the location of the mass and the size of the mass, radiologist was unable to perform biopsy. Also we do not have capability of doing bone marrow biopsy which was recommended by oncologist. SPEP and light chain disease were differential diagnosis, await for final reports. During hospital stay patient was collected 24-hour urine for urine PEP. At admission patient was found hypokalemia potassium 3 , hyponatremia of sodium 126., With treatment or electrolytes abnormality or back to normal limits. Regarding the fall she had at home, suspect this was from electrolytes abnormality, and orthostatic condition. - ALLERGIES Allergies/Adverse Reactions: Allergies Allergy/AdvReac Type Severity Reaction Status Date / Time codeine Allergy Unknown Verified 07/26/23 17:12 mussels Allergy Unknown Verified 07/26/23 17:31 - MEDICATIONS Home Medications: Ambulatory Orders Medication Instructions Recorded Confirmed Aspirin [Aspir 81] 81 mg PO BID 07/26/14 08/08/23 Clobetasol Propionate/Emoll 1 applic TOP DAILY PRN 07/26/14 08/08/23 [Clobetasol Emollnt 0.05% Foam] Fexofenadine [Haily] 180 mg PO QPM 07/26/14 08/08/23 Methotrexate [Methotrexate Sodium] 15 mg PO .WED 07/26/14 08/08/23 Telmisartan/Hydrochlorothiazid 1 tab PO QPM 07/26/14 08/08/23 [Micardis Hct 80-12.5 mg Tablet] Tolterodine [Detrol LA] 2 mg PO QPM 07/26/14 08/08/23 Topiramate 50 mg PO BID 07/26/14 08/08/23 Levothyroxine Sodium [Synthroid] 112 mcg ORAL DAILY 06/21/21 08/08/23 Melatonin 10 mg PO HS 06/21/21 08/08/23 Ezetimibe [Zetia] 10 mg PO QD 08/08/23 08/08/23 Folic Acid 1 mg PO .DAILY EXCEPT WED 08/08/23 08/08/23 diphenhydrAMINE [Benadryl] 25 mg PO HS 08/08/23 08/08/23 Magnesium Oxide [Mag Ox] 400 mg PO DAILYWM 14 Days #14 tab 08/13/23 - PHYSICAL EXAM AT DISCHARGE General Appearance: positive: No acute distress, Alert Neck: positive: Nml inspection Respiratory: positive: Chest non-tender Cardiovascular: positive: Regular rate & rhythm Abdomen: positive: Non-tender, No distention Skin: positive: Color nml, Skin rash - LABS Result Diagrams: 08/11/23 04:50 08/13/23 05:10"
[2023-08-13 18:08] LABS: KAPPA FREE LT CHAINS SERUM 41.1 mg/L (3.3-19.4); KAPPA/LAMBDA RATIO SERUM 0.77 (0.26-1.65); LAMBDA FREE LT CHAINS SERUM 53.5 mg/L (5.7-26.3)
[2023-08-14] MEDS ORDERED: METHOTREXATE 2.5 MG TABLET PO SCH (09:00)
[2023-08-14 12:08] LABS: M-SPIKE % URINE Not Observed % (Not Observed); PROTEIN TOTAL URINE 4.7 mg/dL (Not Estab.)
[2023-08-15 13:11] LABS: PROTEIN URINE 24HR 249 mg/24 hr (30-150)
== END 2023-08-13 15:40 | disposition home or self-care (01) | DRG 641 ==
LOC: ED 17:25 → MS3 21:33 → MS2 08-11 10:11 → MS3 08-11 10:14
PROVIDERS: ADMIT Student in an Organized Health Care Education/Training Program; ATTEND Internal Medicine
DX: E83.52 Hypercalcemia (principal); N17.9 Acute kidney failure, unspecified; E87.1 Hypo-osmolality and hyponatremia; E07.9 Disorder of thyroid, unspecified; E87.6 Hypokalemia; W18.30XA Fall on same level, unspecified, initial encounter; S09.90XA Unspecified injury of head, initial encounter; W19.XXXA Unspecified fall, initial encounter; Y92.9 Unspecified place or not applicable; E11.9 Type 2 diabetes mellitus without complications; L40.9 Psoriasis, unspecified; I10 Essential (primary) hypertension; G43.909 Migraine, unspecified, not intractable, without status migrainosus; R53.1 Weakness; R26.81 Unsteadiness on feet; R11.2 Nausea with vomiting, unspecified; D72.829 Elevated white blood cell count, unspecified; D75.839 Thrombocytosis, unspecified; E86.0 Dehydration; E86.1 Hypovolemia; E03.9 Hypothyroidism, unspecified; D73.9 Disease of spleen, unspecified; R63.0 Anorexia; T38.1X6A Underdosing of thyroid hormones and substitutes, initial encounter; Z79.631 Long term (current) use of antimetabolite agent; Z87.891 Personal history of nicotine dependence; Z68.35 Body mass index [BMI] 35.0-35.9, adult
CPT/HCPCS: 36415; 70450; 70460; 70491; 71045; 71260; 74177; 76536; 76770; 80048; 80053; 80076; 81001; 82306; 82310; 82330; 82397; 82565; 83036; 83521; 83735; 83970; 84100; 84155; 84156; 84165; 84166; 84295; 84443; 85025; 85027; 93005; 96361; 96365; 97116; 97162; 97166; 97530; 99285; A9270; J3489; Q9967; 81003; 87086

== ENCOUNTER 2024-02-04 15:56 | Outpatient (CLI) | payer MEDICARE, OTHER ==
[2024-02-04 18:04] LABS: ALBUMIN 4.3 g/dL (3.2-5.5); ALKALINE PHOSPHATASE 51 IU/L (42-121); ALT ALANINE AMINOTRANSFERASE 34 IU/L (10-60); AST ASPARTATE AMINOTRANSFERASE 22 IU/L (10-42); BILIRUBIN,DIRECT < 0.10 mg/dL (0.03-0.18); BILIRUBIN,TOTAL 0.5 mg/dL (0.2-1.0); BUN - BLOOD UREA NITROGEN 19 mg/dL (6-20); CREATININE 0.9 mg/dL (0.6-1.3); GFR - MDRD 63 (>89); TOTAL PROTEIN 7.2 g/dL (6.4-8.9)
[2024-02-04 18:17] LABS: BASOPHILS % (AUTO) 0.5 %; EOSINOPHILS # (AUTO) 0.2 10^3/uL (0.0-0.7); EOSINOPHILS % (AUTO) 1.9 %; HCT - HEMATOCRIT 42.8 % (37.0-47.0); HGB - HEMOGLOBIN 13.9 g/dL (12.0-16.0); LYMPHOCYTES # (AUTO) 2.9 10^3/uL (1.5-3.5); MEAN CORPUSCULAR HEMOGLOBIN 31.5 pg (27.0-31.0); MEAN CORPUSCULAR HGB CONC 32.5 g/dL (32.0-36.0); MEAN CORPUSCULAR VOLUME 97.1 fL (81.0-99.0); MEAN PLATELET VOLUME 8.8 fL (7.9-10.8); MONOCYTES # (AUTO) 0.8 10^3/uL (0.0-1.0); NEUTROPHILS # (AUTO) 4.6 10^3/uL (1.5-6.6); NEUTROPHILS % (AUTO) 54.2 %; PLT - PLATELET COUNT 412 10^3/uL (130-450); RED BLOOD COUNT 4.41 10^6/uL (4.20-5.40); RED CELL DISTRIBUTION WIDTH 14.2 % (12.0-15.0); WHITE BLOOD COUNT 8.4 x10^3/uL (4.8-10.8)
== END 2024-02-04 15:57 | disposition home or self-care (01) ==
LOC: LAB.N 15:56
PROVIDERS: ATTEND Physician Assistant Medical
DX: L40.0 Psoriasis vulgaris (principal)
CPT/HCPCS: 36415; 80076; 82565; 84520; 85025